=== PATIENT | male | born 1935 | race Caucasian/White ===

== ENCOUNTER → 2017-11-30 05:00 | Outpatient (REF) | payer MEDICARE, SELFPAY ==
[2017-11-30 08:56] LABS: AST(SGOT) 14 U/L (15-37); Alanine Aminotransfer ALT/SGPT 23 U/L (12-78); Albumin, Serum 3.5 g/dL (3.4-5.0); Alkaline Phosphatase 39 U/L (45-117); Anion Gap 8 (5-15); BUN 30 mg/dL (7-18); BUN/Creat Ratio 21.4 RATIO (10-20); Calcium,Total 9.3 mg/dL (8.5-10.1); Chloride 101 mmol/L (98-107); EST Glomerular Filtration Rate 52 mL/min (>60); Est Glom Filt Rate - Afr Amer 63 mL/min (>60); Globulin 3.6 g/dL (2.2-4.2); Glucose 112 mg/dL (70-110); Potassium 4.7 mmol/L (3.5-5.1); Protein, Total 7.1 g/dL (6.4-8.2); Sodium Level 136 mmol/L (136-145)
[2017-11-30 09:12] LABS: Hemoglobin A1c 7.9 % (4.2-6.3)
== END ==
LOC: OLS.ACH 05:00
DX: E11.40 Type 2 diabetes mellitus with diabetic neuropathy, unspecified (principal)
CPT/HCPCS: 36415; 80053; 83036

== ENCOUNTER → 2018-03-01 05:00 | Outpatient (REF) | payer MEDICARE, SELFPAY ==
[2018-03-01 08:44] LABS: ALB/GLOB Ratio 1.2 RATIO (0.9-2.4); AST(SGOT) 11 U/L (15-37); Alanine Aminotransfer ALT/SGPT 17 U/L (16-61); Albumin, Serum 3.5 g/dL (3.2-5.0); Alkaline Phosphatase 45 U/L (45-117); Anion Gap 8 (5-15); BUN 32 mg/dL (7-18); BUN/Creat Ratio 21.9 RATIO (10-20); Calcium,Total 8.7 mg/dL (8.5-10.1); Chloride 102 mmol/L (98-107); Cholesterol 183 mg/dL (200); Creatinine, Serum 1.46 mg/dL (0.70-1.30); EST Glomerular Filtration Rate 49 mL/min (>60); Est Glom Filt Rate - Afr Amer 60 mL/min (>60); Glucose 124 mg/dL (74-106); High Density Lipoprotein 44 mg/dL; Potassium 4.7 mmol/L (3.5-5.1); Protein, Total 6.5 g/dL (6.4-8.2); Sodium Level 138 mmol/L (136-145); Triglycerides 270 mg/dL; Very Low Density Lipoprotein 54 mg/dL (5-40)
[2018-03-01 09:04] LABS: Hemoglobin A1c 9.2 % (4.2-6.3)
== END ==
LOC: OLS.ACH 05:00
PROVIDERS: Visit Provider Family Medicine
DX: E11.40 Type 2 diabetes mellitus with diabetic neuropathy, unspecified (principal); E78.00 Pure hypercholesterolemia, unspecified
CPT/HCPCS: 36415; 80053; 80061; 83036

== ENCOUNTER → 2018-05-31 05:00 | Outpatient (REF) | payer MEDICARE, SELFPAY ==
[2018-05-31 09:27] LABS: Hemoglobin A1c 8.6 % (4.2-6.3)
[2018-05-31 09:31] LABS: AST(SGOT) 10 U/L (15-37); Alanine Aminotransfer ALT/SGPT 19 U/L (16-61); Albumin, Serum 3.2 g/dL (3.2-5.0); Alkaline Phosphatase 37 U/L (45-117); Anion Gap 10 (5-15); BUN 21 mg/dL (7-18); BUN/Creat Ratio 16.3 RATIO (10-20); Chloride 103 mmol/L (98-107); Creatinine, Serum 1.29 mg/dL (0.70-1.30); EST Glomerular Filtration Rate 57 mL/min (>60); Est Glom Filt Rate - Afr Amer 69 mL/min (>60); Globulin 3.2 g/dL (2.2-4.2); Glucose 176 mg/dL (74-106); Potassium 4.3 mmol/L (3.5-5.1); Protein, Total 6.4 g/dL (6.4-8.2); Sodium Level 140 mmol/L (136-145)
== END ==
LOC: OLS.ACH 05:00
PROVIDERS: Visit Provider Family Medicine
DX: E11.40 Type 2 diabetes mellitus with diabetic neuropathy, unspecified (principal)
CPT/HCPCS: 36415; 80053; 83036

== ENCOUNTER → 2018-06-29 17:25 | Outpatient (REF) | payer MEDICARE, SELFPAY ==
[2018-06-29 18:05] LABS: Absolute Lymphocyte Count 2.31 X10^3/ul (0.83-4.51); Absolute Neutrophil Count 5.9 X10^3/uL (2.0-7.7); Basophil# 0.02 X10^3/uL; Basophil% 0.2 % (0-1); Eosinophil# 0.33 X10^3/uL; Eosinophils% 3.7 % (0-5); Hematocrit 37.7 % (40-54); Lymphocyte # 2.31 X10^3/ul (4.0); Lymphocyte % 25.8 % (19-41); Mean Corp Hgb Conc 31.8 g/gl (32-36); Mean Corpuscular Hgb 29.8 pg (27.0-32.0); Mean Corpuscular Volume 93.5 fL (80-94); Mean Platelet Vol. 9.9 fl (6.2-12.0); Monocyte# 0.41 X10^3/uL; Monocyte% 4.6 % (0-10); Neutrophil # 5.88 X10^3/uL (2.7-7.7); Neutrophil % 65.5 % (47-70); Platelet Count 261 K/mm3 (150-450); RBC Distribution Width SD 48.2 fl (35.1-43.9); Red Blood Count 4.03 M/mm3 (4.6-6.2)
[2018-06-29 18:07] LABS: POSITIVE COUNT NO; POSITIVE DIFFERENTIAL NO; POSITIVE MORPHOLOGY NO
[2018-06-29 18:14] LABS: Anion Gap 6 (5-15); BUN 36 mg/dL (7-18); BUN/Creat Ratio 19.6 RATIO (10-20); Calcium,Total 9.2 mg/dL (8.5-10.1); Chloride 102 mmol/L (98-107); Creatinine, Serum 1.84 mg/dL (0.70-1.30); EST Glomerular Filtration Rate 38 mL/min (>60); Est Glom Filt Rate - Afr Amer 46 mL/min (>60); Glucose 335 mg/dL (74-106); Potassium 4.5 mmol/L (3.5-5.1); Sodium Level 136 mmol/L (136-145)
== END ==
LOC: OLS.ACH 17:25
PROVIDERS: Visit Provider Family Medicine
DX: R69 Illness, unspecified (principal)
CPT/HCPCS: 36415; 80048; 85025

== ENCOUNTER → 2018-07-02 05:00 | Outpatient (REF) | payer MEDICARE, SELFPAY ==
[2018-07-02 09:26] LABS: Anion Gap 10 (5-15); BUN 28 mg/dL (7-18); Calcium,Total 8.5 mg/dL (8.5-10.1); Chloride 107 mmol/L (98-107); EST Glomerular Filtration Rate 52 mL/min (>60); Est Glom Filt Rate - Afr Amer 62 mL/min (>60); Glucose 89 mg/dL (74-106); Sodium Level 142 mmol/L (136-145)
== END ==
LOC: OLS.ACH 05:00
PROVIDERS: Visit Provider Family Medicine
DX: E11.40 Type 2 diabetes mellitus with diabetic neuropathy, unspecified (principal)
CPT/HCPCS: 36415; 80048

== ENCOUNTER 2018-07-06 10:01 | Inpatient (IN) | payer MEDICARE, SELFPAY ==
[2018-07-06] VITALS (17 sets, daily range): BP systolic 103–134; BP diastolic 45–81; PULSE 85–109; RESP 12–30; TEMP 36.2–37.2; O2SAT 95–100; BMI 31.4; BMI 28.8; BMI 28.9
--- NOTE | 2018-07-06 10:04 | NURSING ---
NO OLD EKGS
[2018-07-06 10:29] LABS: Absolute Neutrophil Count 5.2 X10^3/uL (2.0-7.7); Basophil# 0.02 X10^3/uL; Basophil% 0.3 % (0-1); Eosinophil# 0.07 X10^3/uL; Hemoglobin 11.5 g/dl (13.0-16.5); Lymphocyte % 18.3 % (19-41); Mean Corp Hgb Conc 31.9 g/gl (32-36); Mean Corpuscular Hgb 29.3 pg (27.0-32.0); Mean Corpuscular Volume 91.6 fL (80-94); Mean Platelet Vol. 9.5 fl (6.2-12.0); Monocyte# 0.46 X10^3/uL; Monocyte% 6.5 % (0-10); Neutrophil # 5.23 X10^3/uL (2.7-7.7); Neutrophil % 73.6 % (47-70); POSITIVE COUNT NO; POSITIVE DIFFERENTIAL NO; POSITIVE MORPHOLOGY NO; Platelet Count 309 K/mm3 (150-450); RBC Distribution Width CV 13.9 % (11.6-14.6); RBC Distribution Width SD 46.4 fl (35.1-43.9); Red Blood Count 3.93 M/mm3 (4.6-6.2); White Blood Count 7.1 K/mm3 (4.4-11.0)
[2018-07-06] MEDS: Aspirin 81 MG TAB.CHEW 162 MG PO (10:30)
[2018-07-06] MEDS: 0.9% Normal Saline 1,000 ML 15 ML IV ×2 (10:30→11:55)
[2018-07-06 10:47] LABS: Lactic Acid 1.4 mmol/L (0.4-2.0)
[2018-07-06 10:55] LABS: Anion Gap 8 (5-15); BUN 29 mg/dL (7-18); BUN/Creat Ratio 16.9 RATIO (10-20); Calcium,Total 8.8 mg/dL (8.5-10.1); Chloride 102 mmol/L (98-107); Creatinine, Serum 1.72 mg/dL (0.70-1.30); EST Glomerular Filtration Rate 41 mL/min (>60); Est Glom Filt Rate - Afr Amer 49 mL/min (>60); Estimated Creatinine Clearance 32.59 ml/min; Glucose 194 mg/dL (74-106); Potassium 4.6 mmol/L (3.5-5.1); Sodium Level 134 mmol/L (136-145)
[2018-07-06 11:01] LABS: BNP,B-Type NATRIURETIC PEPTIDE 437.7 pg/mL (0-100)
[2018-07-06] MEDS: Heparin Injection (Vial) 5,000 UNIT/ML VIAL 7500 UNIT IV (11:48)
--- NOTE | 2018-07-06 11:50 | CM.ED ---
Attempted to perform Case Management initial assessment. Care provided by team at this time. Will reattempt as able.
[2018-07-06] MEDS: HEPARIN/D5w 25,000 UNITS 25,000 UNITS/250 ML IV.SOLN. 14 UNITS IV (11:54)
[2018-07-06] MEDS: Piperacil/Tazobactam 4.5 GM in NS100 MBP IV (11:55)
--- NOTE | 2018-07-06 12:28 | ED.VISSUMM ---
- ER Visit Summary Date of Service: 07/06/18 Chief Complaint: [Shortness of breath] History of Present Illness: The patient is a 82 M presents the emergency department complaint of shortness of breath started several days ago. Patient is a poor informant as he does have a history of some dementia. Patient is from a assisted living facility. Patient currently had an episode of increasing shortness of breath this morning. eventually arrived in the emergency department states that he is currently being treated for pneumonia. Patient denies any chest pain. Patient does have a history of diabetes, hypertension, BPH, UTIs, and dementia.] Physical Examination: [HEENT-PERRLA, EOMI. Cranial nerves II through XII grossly intact. TMs clear. Mucous membranes moist. No adenopathy. Cardiovascular-regular rate and rhythm without murmur or ectopy Lungs-aeration bilaterally. Occasional rhonchi with some faint wheezing. Mild tachypnea. No accessory muscle use or retractions. Abdomen-normoactive bowel sounds, soft, nontender, no rebound or rigidity, no peritoneal signs. Extremities-intact ?4, normal range of motion, normal pulses, atraumatic] Test Results: [EKG obtained arrival shows sinus rhythm with a ventricular rate of 110 bpm with a right bundle branch block and some subtle ST elevation inferiorly anteriorly and laterally. No old EKGs available for comparison. CBC with differential showing a 7.1, hemoglobin 11, hematocrit 36, platelets 309. Chemistries unremarkable. BUN was 29 creatinine 1.72. Troponin was 1.77. BNP was elevated 437. Lactate was 1.4. Chest x-ray showed patchy infiltrates right upper lobe, right lower lobe, and left lower lobe. Because of the elevated troponin and the abnormal findings on x-ray CTA of the chest was obtained to rule out PE which was positive for bilateral pulmonary emboli.] Emergency Department Course and Treatment: [Patient was started on heparin and started on antibiotics Zosyn, Levaquin, and vancomycin. Case was discussed with Dr. Beltran who is on for cardiology and he did review the patient's initial EKG and did not feel this was consistent with a STEMI.] Treatment Plan: [Admit for medical management.] Disposition: [Admit] Impression: [Pulmonary emboli Non-ST elevation [facility] acquired pneumonia] This note was generated with [employer] software. It may contain incorrect words, spelling, and punctuation that were not noted in review of the chart prior to signing ED Disposition - Plan for ED Patient: Chief Complaint: Shortness of Breath Referrals: Helder Contreras [Primary Care Provider] -
--- NOTE | 2018-07-06 12:32 | PCM.HP.STD ---
Problem List (1) Shortness of breath Status: Acute History of Present Illness Date of Admission: 07/06/18 Chief Complaint: shortness of breath The patient is a 82 year old M was admitted via the ED from his [facility] with a complaint of shortness of breath. Patient had a very good historian and history was taken from his . According to his , she was called today that patient had an episode of sudden shortness of breath and so he was going to be admitted to the ED. could not give any more history but states that patient was recently being treated for pneumonia over the last few days. She was unable to say whether he had any fever, chills, risk of aspiration, but does say he had a slight cough which is nonproductive. I was unable to get any more history from the . In the ED, temperature was 99.0 Fahrenheit, blood pressure was 103/66 and pulse rate was 101. Respiratory rate was 28. He was saturating at 96% on 3 L of oxygen. Labs were significant for sodium of 134, creatinine of 1.72 and troponin of 1.77. BNP was 47.7. CBC was unremarkable. Lactic acid was 1.4. EKG done showed tachycardia with rate of 1 1 10 bpm and a right bundle branch block. Chest x-ray showed patchy infiltrates in the right upper, and lower lobe and left lower lobe. CT PE done was positive for bilateral pulmonary emboli. Patient is being admitted to be managed for PE, and ST ELIN and health associated pneumonia. He was started on IV vancomycin and Zosyn and Levaquin. [] Past Medical History Allergies metformin Adverse Reaction (Verified 07/06/18 10:23) Other Home Medications: Ambulatory Orders Medication Instructions Recorded Acetaminophen 650 mg PO Q4H PRN PRN 07/06/18 Aspirin [Aspirin, Baby] 81 mg PO DAILY@0800 07/06/18 Ciprofloxacin HCl 1 drop OP BID 07/06/18 Cod Liver Oil 1 each PO DAILY 07/06/18 Cranberry 800 mg PO BID 07/06/18 Cyclosporine [Restasis] 1 drop OP Q12H PRN 07/06/18 Fenofibrate,Micronized 200 mg PO DAILY 07/06/18 [Fenofibrate] Finasteride [Proscar] 5 mg PO DAILY 07/06/18 Glimepiride [Amaryl] 1 tab PO BID 07/06/18 Insulin Detemir [Levemir] 42 unit SQ QHS 07/06/18 Insulin Detemir [Levemir] 80 units SQ DAILY 07/06/18 Ipratropium/Albuterol Sulfate 3 ml INHALATION Q4H PRN PRN 07/06/18 [Duoneb] Lisinopril [Zestril] 5 mg PO DAILY 07/06/18 Magnesium Hydroxide [Milk Of 30 ml PO DAILY PRN PRN 07/06/18 Magnesia] Na Phos,M-B/Na Phos,Di-Ba [Fleet 1 bottle RECTAL DAILY PRN 07/06/18 Enema] Polyvinyl Alcohol [Artificial 15 ml OP BID PRN 07/06/18 Tears] Sennosides [Senna] 8.6 mg PO DAILY PRN 07/06/18 Sertraline HCl [Zoloft] 25 mg PO QHS 07/06/18 Sulfamethoxazole/Trimethoprim 1 each PO DAILY 07/06/18 [Bactrim 400-80 mg Tablet] Tamsulosin HCl [Flomax] 0.4 mg PO DAILY 07/06/18 Lives: [facility] Smoking Status: Unknown if ever smoked Alcohol: None Drugs: None Review of Systems Respiratory: Reports: Cough - nonproductive, Shortness of Breath Unable to obtain accurate/complete ROS d/t: Unable to do ROS as patient is poor historian with some dementia VTE Information - Inpt Only VTE Present on Admission: Yes - bilateral PE Patient Problems: Active and Suspected Problems Shortness of breath (Acute) Pulmonary embolism (Acute) NSTEMI (non-ST elevated myocardial infarction) (Acute) Pulmonary hypertension (Acute) - Physical Exam General: Alert, Cooperative, No apparent distress, - - patient is a bit confused; able to follow instructions AO x 2 HEENT: Atraumatic, PERRLA, EOMI, Normocephalic Oral: Dry Mucosa Neck: Supple, No JVD, Negative Carotid Bruits Lungs: - - decreased breath sounds bibasally; no crackles or wheezing auscultated Cardiovascular: Normal S1, Normal S2, No murmurs, Tachycardic Abdomen: Bowel Sounds Present, Soft, Non Tender, Non-Distended, No Hepato-splenomegaly Extremities: No clubbing, No cyanosis, No edema, Capillary Refill Less than 3 Seconds Skin: No rashes, No breakdown, - - multiple seborrheic keratoses; history of skin cancer Musculoskeletal: No Tenderness to Palpation of Joints or Extremities Lymphatic: No Cervical, Supraclavicular, or Inguinal Adenopathy Neurological: Cranial nerves II-XII grossly intact, Motor Exam 5/5 strength throughout Psych/Mental Status: Flat Affect Vital Signs Temp Pulse Resp BP Pulse Ox 99.0 F 109 H 28 H 109/53 L 96 07/06/18 10:03 07/06/18 12:01 07/06/18 12:01 07/06/18 12:01 07/06/18 12:01 Oxygen Flow Rate (L/min) 2.5 Oxygen Delivery Method Nasal Cannula Weight: 206 lb 9.17 oz Body Mass Index (BMI) 31.4 Laboratory Tests Past 24 Hrs 07/06/18 07/06/18 07/06/18 10:03 10:03 10:03 WBC 7.1 RBC 3.93 L Hgb 11.5 L Hct 36.0 L MCV 91.6 MCH 29.3 MCHC 31.9 L RDW 13.9 RDW Differential 46.4 H Plt Count 309 MPV 9.5 Immature Gran % (Auto) 0.300 Neut % (Auto) 73.6 H Lymph % (Auto) 18.3 L [place] % (Auto) 6.5 Eos % (Auto) 1.0 Baso % (Auto) 0.3 Absolute Neuts (auto) 5.2 Absolute Lymphs (auto) 1.30 Total Counted Not Reportable APTT Sodium 134 L Potassium 4.6 Chloride 102 Carbon Dioxide 24.0 Anion Gap 8 BUN 29 H Creatinine 1.72 H Estim Creat Clear Calc 32.59 Est GFR (MDRD) Af Amer 49 L Est GFR (MDRD) Non-Af 41 L BUN/Creatinine Ratio 16.9 Glucose 194 H Lactic Acid 1.4 Calcium 8.8 Troponin I 1.770 H* B-Natriuretic Peptide 07/06/18 07/06/18 10:03 10:05 WBC RBC Hgb Hct MCV MCH MCHC RDW RDW Differential Plt Count MPV Immature Gran % (Auto) Neut % (Auto) Lymph % (Auto) [place] % (Auto) Eos % (Auto) Baso % (Auto) Absolute Neuts (auto) Absolute Lymphs (auto) Total Counted APTT Pending Sodium Potassium Chloride Carbon Dioxide Anion Gap BUN Creatinine Estim Creat Clear Calc Est GFR (MDRD) Af Amer Est GFR (MDRD) Non-Af BUN/Creatinine Ratio Glucose Lactic Acid Calcium Troponin I B-Natriuretic Peptide 437.7 H Diagnostic Data Chest X-Ray 07/06/18 10:11 IMPRESSION: Patchy infiltrates in the right upper and right lower lobes as well as in the left lower lobe. Follow-up is recommended. Electronically Signed: Ramana Frost MD at 11:05 EDT Tel [phone], Service support , Chest CTA 07/06/18 11:03 IMPRESSION: Pulmonary embolism involving the right interlobar pulmonary artery and the branches as well as tiny pulmonary emboli in the left lower lobe pulmonary arterial branches. Bibasilar infiltration and small bilateral pleural effusions. Electronically Signed: Ramana Frost MD at 12:23 EDT Tel [phone], Service support , Assessment/Plan All Active Problems Shortness of breath (Acute) Pulmonary embolism (Acute) NSTEMI (non-ST elevated myocardial infarction) (Acute) Pulmonary hypertension (Acute) 82-year-old male admitted from the fdc with complaint of shortness of breath of sudden onset. 1. submassive bilateral pulmonary embolism unclear whether it is provoked or unprovoked. started having acute onset SOB overnight; unable to give any more information about that. CTPE positive for bilateral PE; has associated troponin elevation which could be due to NSTEMI or due to right heart strain started on heparin drip no information about age appropriate screening, but only has history of skin cancer. No weight loss per . No records of previous colonoscopy will consult pulmonology continue heparin drip; cycle troponin 2D echo oxygen to maintain saturation >92% 2. NST ELIN Has elevated troponin of 1.17. No baseline available. EKG showed no acute ST changes. And only showed right bundle branch block. Elevated troponin may be due to right heart strain from PE or NSTEMI will cycle troponin. Continue heparin drip will give aspirin 81mg daily and atorvastatin 40mg; cardiology consult 2D echo 3.Sepsis due to Health associated pneumonia Was being pneumonia in the fdc. cannot give any more history about this. Does not know which antibiotic he was on. Chest x-ray showed patchy infiltrates in right upper lobe, right lower lobe and left lower lobe. CT angiogram also showed small bilateral pleural effusions with bibasilar infiltration or atelectasis. has no leucocytosis,. SIRS criteria is 2/4, with a possible focus of infection started on IV vancomycin, zosyn and levaquin; will continue 4. Diabetes mellitus: continue home insulin, and start ISS. hold metformin and glyburide. 5. BPH: on flomax and finasteride. DVT prophylaxis: On heparin drip Code status: DNRCCA. Patient and counseled about different types of CODE STATUS. Counseled about different to DNR CCA, DNR CC and full code. Per , who states she is his power of attorney at law, patient is DNR CC -A. DOcumentation of DNRCCA code status brought from SNF. Total [id number] time 18 minutes. This note was generated with [employer] dictation software. It may contain incorrect words, spelling, and punctuation that were not noted in checking the note before signing. Code Visit Inpatient E&M: 89123 Init Hosp L3 Procedures: 09117 Advncd Care Plan 30 Min
[2018-07-06 12:39] LABS: Partial Thromboplast Time 34.2 Seconds (24.1-36.2)
--- NOTE | 2018-07-06 12:53 | NURSING ---
107 PE, PNEUMONIA KORAM
--- NOTE | 2018-07-06 14:20 | CASEMGMT ---
Patient is from [facility]. 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 AUTUMN spoke with Shelby at [facility] and he will not need a pre-cert to return. AUTUMN faxed updates to [facility]. Plan: d/c back to [facility] when ready Clare ROSAS MSW
[2018-07-06] MEDS: levoFLOXacin IV 750 MG/150 ML BAG 100 MG IV (14:48)
[2018-07-06] MEDS: 0.9% Normal Saline 1,000 ML 125 ML IV (14:52)
--- NOTE | 2018-07-06 15:04 | CON.PCM_ITS ---
Problem List (1) Pulmonary embolism Status: Acute Qualifiers: Pulmonary embolism type: other Chronicity: acute Acute cor pulmonale presence: with acute cor pulmonale Qualified Code(s): I26.09 - Other pulmonary embolism with acute cor pulmonale Reason for Consult Date of Consultation: 07/06/18 Reason for Consultation: Pulmonary embolism History of Present Illness: The patient is a 82 year old M, with reported history of diabetes, hypertension , BPH, recurrent UTIs and dementia, who presented to [facility] on 07/06/2018 following acute decompensation of shortness of breath overnight. Patient is a very poor historian and reportedly lives at a nursing facility. Patient has been dealing with pneumonia for approximately 1 week, but overnight started to have worsening of shortness of breath. Patient was evaluated by the medical secretary receptionist and was sent to the ER for evaluation. On evaluation in the emergency room, patient was noted to have tachycardia with 110 bpm with a right bundle yaw block. CBC was grossly unremarkable, but troponin was elevated at 1.77. BNP was elevated at 437. Chest x-ray showed patchy right-sided infiltrates. This led to a CTA of the chest to rule out PE and was notable for right-sided pulmonary emboli. Patient was placed on a heparin drip and then admitted to the general medical floor. Patient denies any previous history of respiratory difficulties. Patient does have a [id number] smoking history, but denies any alcohol or illicit drug use. Patient states that he currently lives in a jail and is relatively nonmobile. Patient has had issues with recurrent UTIs in the past and states that he was recently being treated for pneumonia. However, patient is unaware of how he was being treated. Patient denies any requirement for inhalers or supplemental oxygen in the past. Patient has never had pulmonary function test. 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 Patient denies any recent trauma or travel. Review of systems otherwise negative ?10 systems. Past Medical History Allergies metformin Adverse Reaction (Verified 07/06/18 10:23) Other Lives: Long-Term Smoking Status: Unknown if ever smoked Alcohol: None Drugs: None Review of Systems Comment: See HPI Patient Problems: Active and Suspected Problems Shortness of breath (Acute) Pulmonary embolism (Acute) Objective: All imaging was personally reviewed. Lung parenchymal evaluation was limited by motion artifact. Pulmonary embolism was noted. Patient did have bilateral pleural effusions, right greater than left. - Physical Exam General: Alert, Oriented x3, Cooperative, No apparent distress, - - Appears stated age. Speaking in full sentences. Nasal cannula in place. HEENT: Atraumatic, PERRLA, EOMI, Normocephalic, - - No scleral icterus or injection noted. Oral: Moist Mucosa, No Gingival or Mucosal Lesions/ Ulcerations Neck: Supple, No JVD, No Nodes, Trachea Midline Lungs: No rhonchi, No wheeze, No rales, Diminished, - - Symmetric expansion. No dullness to percussion. Cardiovascular: Regular rate, Normal S1, Normal S2, No murmurs, No rub noted, No Gallop Abdomen: Bowel Sounds Present, Soft, Non Tender, Non-Distended Extremities: No clubbing, No cyanosis, No edema Skin: No rashes, No breakdown Musculoskeletal: No Tenderness to Palpation of Joints or Extremities, No Muscle Wasting Lymphatic: No Cervical, Supraclavicular, or Inguinal Adenopathy Neurological: Cranial nerves II-XII grossly intact, - - Decreased strength bilateral lower extremities Psych/Mental Status: Alert and oriented to time, place, person, mood and affect Vital Signs Temp Pulse Resp BP Pulse Ox 37.0 C 98 20 H 108/45 L 98 07/06/18 13:22 07/06/18 13:22 07/06/18 13:22 07/06/18 13:22 07/06/18 13:22 Oxygen Flow Rate (L/min) 2 Oxygen Delivery Method Nasal Cannula Weight: 99.3 kg Body Mass Index (BMI) 28.8 Laboratory Tests 07/06/18 07/06/18 07/06/18 10:03 10:03 10:03 WBC 7.1 RBC 3.93 L Hgb 11.5 L Hct 36.0 L MCV 91.6 MCH 29.3 MCHC 31.9 L RDW 13.9 RDW Differential 46.4 H Plt Count 309 MPV 9.5 Immature Gran % (Auto) 0.300 Neut % (Auto) 73.6 H Lymph % (Auto) 18.3 L [place] % (Auto) 6.5 Eos % (Auto) 1.0 Baso % (Auto) 0.3 Absolute Neuts (auto) 5.2 Absolute Lymphs (auto) 1.30 Total Counted Not Reportable APTT Sodium 134 L Potassium 4.6 Chloride 102 Carbon Dioxide 24.0 Anion Gap 8 BUN 29 H Creatinine 1.72 H Estim Creat Clear Calc 32.59 Est GFR (MDRD) Af Amer 49 L Est GFR (MDRD) Non-Af 41 L BUN/Creatinine Ratio 16.9 Glucose 194 H Lactic Acid 1.4 Calcium 8.8 Troponin I 1.770 H* B-Natriuretic Peptide 07/06/18 07/06/18 07/06/18 10:03 10:05 14:15 WBC RBC Hgb Hct MCV MCH MCHC RDW RDW Differential Plt Count MPV Immature Gran % (Auto) Neut % (Auto) Lymph % (Auto) [place] % (Auto) Eos % (Auto) Baso % (Auto) Absolute Neuts (auto) Absolute Lymphs (auto) Total Counted APTT 34.2 Sodium Potassium Chloride Carbon Dioxide Anion Gap BUN Creatinine Estim Creat Clear Calc Est GFR (MDRD) Af Amer Est GFR (MDRD) Non-Af BUN/Creatinine Ratio Glucose Lactic Acid Calcium Troponin I 1.820 H* B-Natriuretic Peptide 437.7 H Clinical Impression(s) from Imaging Studies Chest X-Ray 07/06/18 10:11 IMPRESSION: Patchy infiltrates in the right upper and right lower lobes as well as in the left lower lobe. Follow-up is recommended. Electronically Signed: Ramana Frost MD at 11:05 EDT Tel [phone], Service support , Chest CTA 07/06/18 11:03 IMPRESSION: Pulmonary embolism involving the right interlobar pulmonary artery and the branches as well as tiny pulmonary emboli in the left lower lobe pulmonary arterial branches. Bibasilar infiltration and small bilateral pleural effusions. Electronically Signed: Ramana Frost MD at 12:23 EDT Tel [phone], Service support , Assessment/Plan All Active Problems Shortness of breath (Acute) Pulmonary embolism (Acute) RECOMMENDATIONS: 1. Continue with anticoagulation 2. Wean oxygen as tolerated 3. Await echocardiogram 4. Increase activity as tolerated 5. Continue to cycle troponins 6. Await cardiology recommendations IMPRESSIONS: 1. Acute hypoxic respiratory insufficiency secondary to submassive pulmonary embolism with cor pulmonale Echocardiogram is currently pending, but increased troponins are suggestive of strain. Clinical significance has yet to be determined. Patient is on anticoagulation and appears to be tolerating well. Continue to cycle troponins. Patient may require age-appropriate malignancy workup given non- provoked pulmonary embolism. Patient appears to be tolerating current hypoxia well, so lower extremity Dopplers are likely not indicated as they will not change clinical course. Outpatient pulmonary function testing can be completed to evaluate for possible COPD given extensive smoking history. 2. Non-ST elevation DE Unclear cardiac history. Patient is a very poor historian. Elevated troponin may be secondary to right heart strain from pulmonary embolism. EKG had showed right bundle branch block, so ST elevation will be of limited utility. Patient is on statin and aspirin therapy. Patient on full anticoagulation. Cardiology is currently consulted. Await recommendations. 3. Diabetes mellitus/hypertension/BPH/dementia/recurrent UTI/advanced age Complicates care, management, recovery and prognosis. Likely okay to continue with baseline medications. Patient is not endorsing any dysuria, fever or leukocytosis to suggest current UTI. Code Visit Inpatient E&M: 77654 Init Hosp L2
--- NOTE | 2018-07-06 16:30 | PCM.CONS.C ---
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 Approximately 1 week ago the patient developed fevers, chills, and was diagnosed with pneumonia and treated with antibiotics. Earlier today the patient had acute shortness of breath, diaphoresis, and tachypnea was brought to [facility] ER. In the emergency room an EKG was performed which demonstrated sinus tachycardia with intraventricular conduction delay, left anterior hemiblock, possible old inferior posterior wall myocardial infarction and subtle J-point elevation in inferior leads. I reviewed the EKG and did not believe that it was a STEMI. Patient underwent a CTA was found to have bilateral pulmonary emboli, right greater than left, treated with IV heparin. His initial troponin was 1.77. Patient was treated with O2 therapy and is now resting comfortably in PCU. Prior to this the patient denied any chest pain, angina, or shortness of breath. He has never been told he had any coronary disease, catheterization or stents. His activity mostly includes laying in bed most of the day occasionally gets up and walks to a wheelchair and rolls around the [facility]. Echocardiogram done today demonstrated mild inferior hypokinesis, mild mitral regurgitation, immobile right coronary cusp of the aortic valve, and RVSP estimated to be around 66 mmHg consistent with severe pulmonary hypertension. [] Past Medical History Allergies/Adverse Reactions: Allergies metformin Adverse Reaction (Verified 07/06/18 10:23) Other Home Medications: Ambulatory Orders Medication Instructions Recorded Acetaminophen 650 mg PO Q4H PRN PRN 07/06/18 Aspirin [Aspirin, Baby] 81 mg PO DAILY@0800 07/06/18 Ciprofloxacin HCl 1 drop OP BID 07/06/18 Cod Liver Oil 1 each PO DAILY 07/06/18 Cranberry 800 mg PO BID 07/06/18 Cyclosporine [Restasis] 1 drop OP Q12H PRN 07/06/18 Fenofibrate,Micronized 200 mg PO DAILY 07/06/18 [Fenofibrate] Finasteride [Proscar] 5 mg PO DAILY 07/06/18 Glimepiride [Amaryl] 1 tab PO BID 07/06/18 Insulin Detemir [Levemir] 42 unit SQ QHS 07/06/18 Insulin Detemir [Levemir] 80 units SQ DAILY 07/06/18 Ipratropium/Albuterol Sulfate 3 ml INHALATION Q4H PRN PRN 07/06/18 [Duoneb] Lisinopril [Zestril] 5 mg PO DAILY 07/06/18 Magnesium Hydroxide [Milk Of 30 ml PO DAILY PRN PRN 07/06/18 Magnesia] Na Phos,M-B/Na Phos,Di-Ba [Fleet 1 bottle RECTAL DAILY PRN 07/06/18 Enema] Polyvinyl Alcohol [Artificial 15 ml OP BID PRN 07/06/18 Tears] Sennosides [Senna] 8.6 mg PO DAILY PRN 07/06/18 Sertraline HCl [Zoloft] 25 mg PO QHS 07/06/18 Sulfamethoxazole/Trimethoprim 1 each PO DAILY 07/06/18 [Bactrim 400-80 mg Tablet] Tamsulosin HCl [Flomax] 0.4 mg PO DAILY 07/06/18 Lives: Custodial Smoking Status: Unknown if ever smoked Alcohol: None Drugs: None Review of Systems - Review of Systems General: Denies: Fever, Night Sweats, Fatigue Cardiovascular: Reports: Shortness of Breath at Rest. Denies: Chest Discomfort, Shortness of Breath, Orthopnea, PND, Peripheral Edema, Palpitations, Lightheadedness, Dizziness, Near Syncope, Syncope Respiratory: Denies: Cough, Sputum Production, Hemoptysis Gastrointestinal: Denies: Hematemesis, Hematochezia, Melena Genitourinary: Denies: Dysuria, Hematuria Skin: Denies: Rash Subjectve: Patient resting comfortably, mild conversational dyspnea, no acute distress. Objective: Vital Signs Temp Pulse Resp BP Pulse Ox 98.6 F 97 20 H 108/45 L 98 07/06/18 13:22 07/06/18 14:18 07/06/18 13:22 07/06/18 13:22 07/06/18 13:22 Oxygen Flow Rate (L/min) 2 Oxygen Delivery Method Nasal Cannula Weight: 218 lb 14.704 oz Body Mass Index (BMI) 28.8 General: Awake, Alert, Oriented x 3 HEENT: PERRL, EOMI, Sclera Non Icteric Neck: Supple, Good ROM, No Lymph Node Enlargement Lungs: Rales - Reinaldo Bases Cardiovascular: Regular Rhythm, Normal S1, Normal S2, No Rubs, No Gallops Murmur Murmur: Grade 2/6, Holosystolic Vascular: No Carotid Bruits, Normal Femoral Pulses, Normal Radial Pulses, Normal Dorsalis Pedal Pulse, Normal Posterior Tibial Pulses Abdomen: Bowel Sounds Present, Soft, Non Tender, No HSM, No Organomegaly Extremities: No Cyanosis, No Clubbing, No edema Neurological: No Focal Motor or Sensory Deficit 07/06/18 14:15: Troponin I 1.820 H* Rhythm: EKG: As above ECHO: As above Stress Test: Cardiac Cath: PCI: CT Surgery: Holter monitor: EPS: PPM: CXR: Chest CT Scan: Assessment/Plan 1. Non-STEMI: The patient has initially elevated troponin of 1.77, increasing to 1.88, superimposed upon acute shortness of breath, bilateral pulmonary emboli, right greater than left, and evidence of inferior posterior wall myocardial infarction on EKG and subtle inferior posterior hypokinesis on echocardiogram. In addition he has evidence of severe pulmonary hypertension with an RVSP of approximately 66 mmHg. I do not believe the patient requires urgent catheterization at this time. We will treat the patient with baby aspirin, IV heparin to keep his PTT between 50 and 70 seconds, and at some point once he recovers from this may require a stress test to assess for possible coronary ischemia. Patient is DNR/CCA, so would have a high threshold for diagnostic coronary angiogram going forward. Would not recommend beta-clara therapy at this time given his pulmonary emboli and O2 requirements. Would recommend continuing lifelong anticoagulation given his sedentary lifestyle and tendency for DVT and pulmonary emboli. This can be accomplished with either Coumadin, Xarelto, or Eliquis depending upon his creatinine clearance. 2. Fasting lipid profile: Recommend obtaining a fasting profile to further risk stratify the patient. 3. Thank you very much for the opportunity to participate in the cardiac care of your patient. Consultation time took place between 4 PM and 4:30 PM. Code Visit Inpatient E&M: 30261 Init Hosp L2
[2018-07-06 17:01] LABS: Bacteria 0 SEEN /hpf (None Seen); Mucous, Urine 0 SEEN /hpf (<or=2+); Red Blood Cells-Urine 0 SEEN /hpf (0-5)
[2018-07-06 17:41] LABS: Color, Urine Yellow (Yellow); Glucose, Dipstick Normal (Normal); Ketone-Dipstick Negative (Negative); Leukocyte Esterase-Dipstick 100 /ul (Negative); Nitrite-Dipstick Negative (Negative); Occult Blood-Urine Negative /ul (Negative); Protein-Dipstick Negative (Negative); Specific Gravity, Urine 1.015 (1.002-1.030); Urine Bilirubin Dipstick Negative (Negative); Urine Clarity Sl. Cloudy (Clear); Urine Urobilinogen Normal (Normal)
[2018-07-06 18:01] LABS: Squamous Epithelial Cells - UA 0-5 SEEN /hpf (0-5); White Blood Cells 5-10 SEEN /hpf (0-5)
[2018-07-06 18:13] LABS: Cholesterol 106 mg/dL (200); High Density Lipoprotein 35 mg/dL; Triglycerides 127 mg/dL; Very Low Density Lipoprotein 25 mg/dL (5-40)
[2018-07-06 19:14] LABS: Partial Thromboplast Time 85.8 Seconds (24.1-36.2)
--- NOTE | 2018-07-06 19:43 | NURSING ---
Called [facility] at this time a requested a PRN breathing tx for the patient.
[2018-07-06] MEDS: Ipratropium/Albuterol Sulfate 3 ML AMPUL.NEB INHALATION (19:50)
[2018-07-06] MEDS: Piperacil/Tazobactam 3.375 GM/50 ML ML IV (20:08)
[2018-07-06 21:11] LABS: Allen Test POS; Base Excess -2 mmol/L (-2 to +2); Bicarbonate 22.7 mmol/L (22-26); Blood Gas Specimen Type ART; EPAP 6; FI02 35; IPAP 12; PO2 107 mmHG (75-100); RR 12; SITE L Radial; SO2 98 % (95-99); Time Given 2100; Total Carbon Dioxide 24 mmol/L; pCO2 38.3 mmHg (35-45); pH 7.38 (7.35-7.45)
[2018-07-06 22:20] LABS: Bedside Glucose 104 mg/dL (70-110)
[2018-07-07] VITALS (15 sets, daily range): BP systolic 101–111; BP diastolic 46–59; PULSE 86–98; RESP 12–26; TEMP 36.6–37.2; O2SAT 96–99
--- NOTE | 2018-07-07 02:20 | CPS ---
decreased FiO2 to 30%
[2018-07-07 02:23] LABS: Absolute Lymphocyte Count 1.86 X10^3/ul (0.83-4.51); Absolute Neutrophil Count 4.1 X10^3/uL (2.0-7.7); Basophil# 0.01 X10^3/uL; Basophil% 0.2 % (0-1); Eosinophil# 0.19 X10^3/uL; Eosinophils% 2.9 % (0-5); Hematocrit 32.4 % (40-54); Hemoglobin 10.3 g/dl (13.0-16.5); Lymphocyte # 1.86 X10^3/ul (4.0); Lymphocyte % 28.7 % (19-41); Mean Corp Hgb Conc 31.8 g/gl (32-36); Mean Corpuscular Hgb 29.3 pg (27.0-32.0); Mean Corpuscular Volume 92.3 fL (80-94); Mean Platelet Vol. 9.2 fl (6.2-12.0); Monocyte% 4.6 % (0-10); Neutrophil # 4.09 X10^3/uL (2.7-7.7); Neutrophil % 63.3 % (47-70); Platelet Count 263 K/mm3 (150-450); RBC Distribution Width SD 47.3 fl (35.1-43.9); Red Blood Count 3.51 M/mm3 (4.6-6.2); White Blood Count 6.5 K/mm3 (4.4-11.0)
[2018-07-07 02:24] LABS: POSITIVE COUNT NO; POSITIVE DIFFERENTIAL NO; POSITIVE MORPHOLOGY NO
[2018-07-07 02:31] LABS: Partial Thromboplast Time 76.1 Seconds (24.1-36.2)
[2018-07-07 02:33] LABS: Anion Gap 8 (5-15); BUN 25 mg/dL (7-18); BUN/Creat Ratio 16.9 RATIO (10-20); Calcium,Total 8.5 mg/dL (8.5-10.1); Chloride 106 mmol/L (98-107); Creatinine, Serum 1.48 mg/dL (0.70-1.30); EST Glomerular Filtration Rate 48 mL/min (>60); Est Glom Filt Rate - Afr Amer 59 mL/min (>60); Estimated Creatinine Clearance 44.24 ml/min; Glucose 92 mg/dL (74-106); Potassium 4.4 mmol/L (3.5-5.1); Sodium Level 139 mmol/L (136-145)
--- NOTE | 2018-07-07 03:52 | CPS ---
Addendum entered by Arron Aragon 07/07/18 03:54: Original Note: Pt unable to tolerate Bipap. Ripped masks headgear off
[2018-07-07] MEDS: HEPARIN/D5w 25,000 UNITS 25,000 UNITS/250 ML IV.SOLN. 14 UNITS IV (05:20)
[2018-07-07] MEDS: Piperacil/Tazobactam 3.375 GM/50 ML ML IV (05:22)
[2018-07-07] MEDS: Ipratropium/Albuterol Sulfate 3 ML AMPUL.NEB INHALATION ×3 (06:46→19:06)
[2018-07-07 06:51] LABS: Bedside Glucose 78 mg/dL (70-110)
--- NOTE | 2018-07-07 07:54 | PCM.PROGNOTE ---
Patient Problems: Active and Suspected Problems Shortness of breath (Acute) Pulmonary embolism (Acute) NSTEMI (non-ST elevated myocardial infarction) (Acute) Pulmonary hypertension (Acute) Subjective: The patient was seen and examined at the bedside this morning. Events from the last 24 hours have been reviewed. The patient is currently afebrile, hemodynamically stable and maintaining appropriate oxygen saturations on 3 L/min via nasal cannula. He denies the presence of pain or resting shortness of breath. He additionally denies the presence of a cough. Objective: The patient's most recent lab work, culture data and imaging studies have all been personally reviewed. Blood cultures are currently pending. Surface echocardiogram revealed evidence of a moderately dilated LV with an ejection fraction of 60%. There was evidence of stage II diastolic dysfunction. Right ventricular systolic pressure was estimated to be 66 mmHg. - Physical Exam General: Alert, Cooperative, No apparent distress HEENT: Atraumatic, PERRLA, Normocephalic Oral: No Gingival or Mucosal Lesions/ Ulcerations Neck: Supple, No Nodes, Trachea Midline Lungs: No rhonchi, No wheeze, No rales, Diminished Cardiovascular: Regular rate, Regular Rhythm, Normal S1, Normal S2, Murmur Abdomen: Bowel Sounds Present, Soft, Non Tender Extremities: No clubbing, No cyanosis, No edema Skin: No breakdown Musculoskeletal: No Tenderness to Palpation of Joints or Extremities Lymphatic: No Cervical, Supraclavicular, or Inguinal Adenopathy Neurological: Neuro grossly intact Psych/Mental Status: Flat Affect Vital Signs Temp Pulse Resp BP Pulse Ox 97.8 F 86 18 111/56 L 98 07/07/18 04:09 07/07/18 07:10 07/07/18 04:09 07/07/18 04:09 07/07/18 04:09 Oxygen Flow Rate (L/min) 3 Oxygen Delivery Method Nasal Cannula Weight: 218 lb 14.704 oz Body Mass Index (BMI) 28.8 Intake and Output for Last 24 Hours 07/05/18 07/06/18 07/07/18 23:59 23:59 23:59 Intake Total 1090 / 1090 400 / 400 Output Total 420 / 420 Balance 670 / 670 400 / 400 Laboratory Tests Past 24 Hrs 07/06/18 07/06/18 07/06/18 14:15 14:15 16:55 WBC RBC Hgb Hct MCV MCH MCHC RDW RDW Differential Plt Count MPV Immature Gran % (Auto) Neut % (Auto) Lymph % (Auto) [place] % (Auto) Eos % (Auto) Baso % (Auto) Absolute Neuts (auto) Absolute Lymphs (auto) Total Counted APTT Specimen Type Sample Site pH Bicarbonate Actual POC Total CO2 Base Excess O2 Saturation O2 % ABG pCO2 ABG pO2 Luis Manuel Test Respiration Rate O2 Delivery Device EPAP IPAP Blood Gas Notified Whom Blood Gas Notified Time Sodium Potassium Chloride Carbon Dioxide Anion Gap BUN Creatinine Estim Creat Clear Calc Est GFR (MDRD) Af Amer Est GFR (MDRD) Non-Af BUN/Creatinine Ratio Glucose Calcium Troponin I 1.820 H* Triglycerides 127 Cholesterol 106 LDL Cholesterol 46 VLDL Cholesterol 25 HDL Cholesterol 35 L Urine Color Yellow Urine Clarity Sl. Cloudy Urine pH 5.0 Ur Specific [place] 1.015 Urine Protein Negative Urine Glucose (UA) Normal Urine Ketones Negative Urine Occult Blood Negative Urine Nitrite Negative Urine Bilirubin Negative Urine Urobilinogen Normal Ur Leukocyte Esterase 100 H Urine RBC 0 SEEN Urine WBC 5-10 SEEN Ur Squamous Epith Cells 0-5 SEEN Urine Bacteria 0 SEEN Urine Mucus 0 SEEN 07/06/18 07/06/18 07/06/18 18:26 19:10 21:04 WBC RBC Hgb Hct MCV MCH MCHC RDW RDW Differential Plt Count MPV Immature Gran % (Auto) Neut % (Auto) Lymph % (Auto) [place] % (Auto) Eos % (Auto) Baso % (Auto) Absolute Neuts (auto) Absolute Lymphs (auto) Total Counted APTT 85.8 H Specimen Type ART Sample Site L Radial pH 7.38 Bicarbonate Actual 22.7 POC Total CO2 24 Base Excess -2 O2 Saturation 98 O2 % 35 ABG pCO2 38.3 ABG pO2 107 H Luis Manuel Test POS Respiration Rate 12 O2 Delivery Device Bi / C PAP EPAP 6 IPAP 12 Blood Gas Notified Whom [facility] Blood Gas Notified Time 2100 Sodium Potassium Chloride Carbon Dioxide Anion Gap BUN Creatinine Estim Creat Clear Calc Est GFR (MDRD) Af Amer Est GFR (MDRD) Non-Af BUN/Creatinine Ratio Glucose Calcium Troponin I 1.620 H* Triglycerides Cholesterol LDL Cholesterol VLDL Cholesterol HDL Cholesterol Urine Color Urine Clarity Urine pH Ur Specific [place] Urine Protein Urine Glucose (UA) Urine Ketones Urine Occult Blood Urine Nitrite Urine Bilirubin Urine Urobilinogen Ur Leukocyte Esterase Urine RBC Urine WBC Ur Squamous Epith Cells Urine Bacteria Urine Mucus 07/07/18 07/07/18 07/07/18 02:05 02:05 02:05 WBC 6.5 RBC 3.51 L Hgb 10.3 L Hct 32.4 L MCV 92.3 MCH 29.3 MCHC 31.8 L RDW 14.0 RDW Differential 47.3 H Plt Count 263 MPV 9.2 Immature Gran % (Auto) 0.300 Neut % (Auto) 63.3 Lymph % (Auto) 28.7 [place] % (Auto) 4.6 Eos % (Auto) 2.9 Baso % (Auto) 0.2 Absolute Neuts (auto) 4.1 Absolute Lymphs (auto) 1.86 Total Counted Not Reportable APTT 76.1 H Specimen Type Sample Site pH Bicarbonate Actual POC Total CO2 Base Excess O2 Saturation O2 % ABG pCO2 ABG pO2 Luis Manuel Test Respiration Rate O2 Delivery Device EPAP IPAP Blood Gas Notified Whom Blood Gas Notified Time Sodium 139 Potassium 4.4 Chloride 106 Carbon Dioxide 25.0 Anion Gap 8 BUN 25 H Creatinine 1.48 H Estim Creat Clear Calc 44.24 Est GFR (MDRD) Af Amer 59 L Est GFR (MDRD) Non-Af 48 L BUN/Creatinine Ratio 16.9 Glucose 92 Calcium 8.5 Troponin I Triglycerides Cholesterol LDL Cholesterol VLDL Cholesterol HDL Cholesterol Urine Color Urine Clarity Urine pH Ur Specific [place] Urine Protein Urine Glucose (UA) Urine Ketones Urine Occult Blood Urine Nitrite Urine Bilirubin Urine Urobilinogen Ur Leukocyte Esterase Urine RBC Urine WBC Ur Squamous Epith Cells Urine Bacteria Urine Mucus POC Glucose 07/07/18 07/06/18 06:44 22:14 POC Glucose 78 104 Clinical Impression(s) from Imaging Studies Chest X-Ray 07/06/18 10:11 IMPRESSION: Patchy infiltrates in the right upper and right lower lobes as well as in the left lower lobe. Follow-up is recommended. Electronically Signed: Ramana Frost MD at 11:05 EDT Tel [phone], Service support , Chest CTA 07/06/18 11:03 IMPRESSION: Pulmonary embolism involving the right interlobar pulmonary artery and the branches as well as tiny pulmonary emboli in the left lower lobe pulmonary arterial branches. Bibasilar infiltration and small bilateral pleural effusions. Electronically Signed: Ramana Frost MD at 12:23 EDT Tel [phone], Service support , Medical Necessity - Tobacco Use Smoking Status: Unknown if ever smoked Assessment/Plan All Active Problems Shortness of breath (Acute) Pulmonary embolism (Acute) NSTEMI (non-ST elevated myocardial infarction) (Acute) Pulmonary hypertension (Acute) RECOMMENDATIONS: 1. Continue heparin drip for now. If cardiology is not planning for any form of intervention, okay to transition to oral anticoagulation regimen. 2. No indication for lower extremity Dopplers, as this would not change our management. 3. Continue to wean supplemental oxygen to maintain saturations at or above 90%. 4. Encourage incentive spirometer use and mobilize patient as tolerated. IMPRESSIONS: 1. Acute hypoxic respiratory insufficiency secondary to submassive pulmonary embolism The patient presented to the hospital with shortness of breath, with subsequent workup revealing evidence of submassive pulmonary embolism. The patient has been maintained on a heparin drip, but can be transitioned to an oral anticoagulation regimen, if cardiology is not planning any further workup. Continue to wean supplemental oxygen as tolerated. The patient will need to perform a walking oximetry study prior to consideration for discharge from the hospital. There would be no indication to obtain lower extremity Dopplers, as an IVC filter would not be indicated unless the patient does not tolerate pharmacologic anticoagulation. 2. Non-ST elevation myocardial infarction Continue medical management per cardiology recommendations. Troponin elevation is likely secondary to #1. 3. Diabetes mellitus/hypertension/BPH/dementia/advanced age Complicates care, management, recovery and prognosis. Continue basal insulin regimen as ordered. This note was generated with [employer] software. It may contain incorrect words, spelling, and punctuation that were not noted in checking the note before signing. Code Visit Inpatient E&M: 72597 Subs Hosp L2
--- NOTE | 2018-07-07 08:07 | PCM.PN.CARD ---
Subjectve: Patient resting comfortably this morning, reports much improved shortness of breath. No 24 hour events. Telemetry showed normal sinus rhythm, no significant arrhythmias. Objective: Vital Signs Temp Pulse Resp BP Pulse Ox 97.8 F 86 18 111/56 L 98 07/07/18 04:09 07/07/18 07:10 07/07/18 04:09 07/07/18 04:09 07/07/18 04:09 Oxygen Flow Rate (L/min) 3 Oxygen Delivery Method Nasal Cannula Weight: 218 lb 14.704 oz Body Mass Index (BMI) 28.8 Intake and Output for Last 24 Hours 07/05/18 07/06/18 07/07/18 23:59 23:59 23:59 Intake Total 1090 / 1090 400 / 400 Output Total 420 / 420 Balance 670 / 670 400 / 400 General: Awake, Alert, Oriented x 3 HEENT: PERRL, EOMI, Sclera Non Icteric Neck: Supple, Good ROM, No Lymph Node Enlargement Lungs: Clear to auscultation Cardiovascular: Regular Rhythm, Normal S1, Normal S2, No Murmurs, No Rubs, No Gallops Murmur Murmur: Grade 2/6, Holosystolic Vascular: No Carotid Bruits, Normal Femoral Pulses, Normal Radial Pulses, Normal Dorsalis Pedal Pulse, Normal Posterior Tibial Pulses Abdomen: Bowel Sounds Present, Soft, Non Tender, No HSM, No Organomegaly Extremities: No Cyanosis, No Clubbing, No edema Neurological: No Focal Motor or Sensory Deficit 07/06/18 14:15: Troponin I 1.820 H* 07/06/18 14:15: Triglycerides 127, Cholesterol 106, LDL Cholesterol 46, VLDL Cholesterol 25, HDL Cholesterol 35 L 07/06/18 16:55: Urine Color Yellow, Urine Clarity Sl. Cloudy, Urine pH 5.0, Ur Specific [place] 1.015, Urine Protein Negative, Urine Glucose (UA) Normal, Urine Ketones Negative, Urine Occult Blood Negative, Urine Nitrite Negative, Urine Bilirubin Negative, Urine Urobilinogen Normal, Ur Leukocyte Esterase 100 H, Urine RBC 0 SEEN, Urine WBC 5-10 SEEN 07/06/18 18:26: APTT 85.8 H 07/06/18 19:10: Troponin I 1.620 H* 07/06/18 21:04: pH 7.38, Bicarbonate Actual 22.7, POC Total CO2 24, Base Excess -2, O2 Saturation 98, ABG pCO2 38.3, ABG pO2 107 H, Luis Manuel Test POS 07/07/18 02:05: WBC 6.5, RBC 3.51 L, Hgb 10.3 L, Hct 32.4 L, MCV 92.3, MCH 29.3, MCHC 31.8 L, RDW 14.0, RDW Differential 47.3 H, Plt Count 263, MPV 9.2, Immature Gran % (Auto) 0.300, Neut % (Auto) 63.3, Lymph % (Auto) 28.7, [place] % (Auto) 4.6, Eos % (Auto) 2.9, Baso % (Auto) 0.2, Absolute Neuts (auto) 4.1, Total Counted Not Reportable 07/07/18 02:05: Sodium 139, Potassium 4.4, Chloride 106, Carbon Dioxide 25.0, Anion Gap 8, BUN 25 H, Creatinine 1.48 H, Est GFR (MDRD) Af Amer 59 L, Est GFR (MDRD) Non-Af 48 L, BUN/Creatinine Ratio 16.9, Glucose 92, Calcium 8.5 07/07/18 02:05: APTT 76.1 H Rhythm: EKG: ECHO: Stress Test: Cardiac Cath: PCI: CT Surgery: Holter monitor: EPS: PPM: CXR: Chest CT Scan: Medical Necessity - Tobacco Use Smoking Status: Unknown if ever smoked Assessment/Plan 1. Non-STEMI: The patient has initially elevated troponin of 1.77, increasing to 1.88 and decreasing to 1.62, superimposed upon acute shortness of breath, bilateral pulmonary emboli, right greater than left, and evidence of inferior posterior wall myocardial infarction on EKG and subtle inferior posterior hypokinesis on echocardiogram. In addition he has evidence of severe pulmonary hypertension with an RVSP of approximately 66 mmHg. I do not believe the patient requires urgent catheterization at this time. We will treat the patient with baby aspirin, IV heparin to keep his PTT between 50 and 70 seconds, and at some point once he recovers from this may require a stress test to assess for possible coronary ischemia. Patient is DNR/CCA, so would have a high threshold for diagnostic coronary angiogram going forward. Would not recommend beta-clara therapy at this time given his pulmonary emboli and O2 requirements. Would recommend continuing lifelong anticoagulation given his sedentary lifestyle and tendency for DVT and pulmonary emboli. This can be accomplished with either Coumadin, Xarelto, or Eliquis depending upon his creatinine clearance. Would also recommend obtaining lower extremity Dopplers to determine his DVT burden as he may require a DVT filter. 2. Fasting lipid profile: Recommend obtaining a fasting profile to further risk stratify the patient. 3. Thank you very much for the opportunity to participate in the cardiac care of your patient. Code Visit Inpatient E&M: 18113 Subs Hosp L2
[2018-07-07 08:08] LABS: Partial Thromboplast Time 62.7 Seconds (24.1-36.2)
[2018-07-07] MEDS: Aspirin 81 MG TAB.CHEW PO (09:32)
[2018-07-07] MEDS: levoFLOXacin IV 500 MG/100 ML BAG 100 MG IV (09:32)
[2018-07-07] MEDS: Fenofibrate 145 MG Tablet PO (09:33)
[2018-07-07] MEDS: Tamsulosin HCl 0.4 MG Capsule PO (09:33)
[2018-07-07] MEDS: Finasteride 5 MG Tablet PO (09:33)
[2018-07-07] MEDS: Lisinopril 5 MG Tablet PO (09:34)
--- NOTE | 2018-07-07 09:53 | PCM.PN.HOSP ---
Patient Problems: Active and Suspected Problems Shortness of breath (Acute) Pulmonary embolism (Acute) NSTEMI (non-ST elevated myocardial infarction) (Acute) Pulmonary hypertension (Acute) Subjective: Patient seen and examined. He had to be put on BIPAP overnight due to worsening SOB; he said that made him feel better, and he is now on 3L of oxygen. He denies any fever chills, any cough or chest pain, any shortness of breath, abdominal pain, any diarrhea or vomiting. 12 point Review of systems otherwise negative. Labs and vitals reviewed. He remains on oxygen and is on 3L. Vitals/I&O's: Vital Signs Temp Pulse Resp BP Pulse Ox 97.8 F 86 16 111/56 L 97 07/07/18 04:09 07/07/18 07:10 07/07/18 06:46 07/07/18 04:09 07/07/18 06:46 Oxygen Flow Rate (L/min) 3 Oxygen Delivery Method Nasal Cannula Weight: 218 lb 14.704 oz Body Mass Index (BMI) 28.8 Intake and Output for Last 24 Hours 07/05/18 07/06/18 07/07/18 23:59 23:59 23:59 Intake Total 1090 / 1090 400 / 400 Output Total 420 / 420 Balance 670 / 670 400 / 400 General: Alert, Oriented x3, Cooperative, No apparent distress HEENT: Atraumatic, PERRLA, EOMI, Normocephalic Oral: Moist Mucosa Neck: Supple, No JVD, Negative Carotid Bruits Lungs: Normal air movement, - - decreased breath sounds bibasally. No wheezing or crackles. Cardiovascular: Regular rate, Regular Rhythm, Normal S1, Normal S2, No murmurs Abdomen: Bowel Sounds Present, Soft, Non Tender, Non-Distended, No Hepato-splenomegaly Extremities: No clubbing, No cyanosis, No edema, Capillary Refill Less than 3 Seconds Skin: No rashes, No breakdown Musculoskeletal: No Tenderness to Palpation of Joints or Extremities Lymphatic: No Cervical, Supraclavicular, or Inguinal Adenopathy Neurological: Cranial nerves II-XII grossly intact, Neuro grossly intact Psych/Mental Status: Normal Affect, Appropriate, Alert and oriented to time, place, person, mood and affect Laboratory Results 07/06/18 14:15: Troponin I 1.820 H* 07/06/18 14:15: Triglycerides 127, Cholesterol 106, LDL Cholesterol 46, VLDL Cholesterol 25, HDL Cholesterol 35 L 07/06/18 16:55: Urine Color Yellow, Urine Clarity Sl. Cloudy, Urine pH 5.0, Ur Specific [place] 1.015, Urine Protein Negative, Urine Glucose (UA) Normal, Urine Ketones Negative, Urine Occult Blood Negative, Urine Nitrite Negative, Urine Bilirubin Negative, Urine Urobilinogen Normal, Ur Leukocyte Esterase 100 H, Urine RBC 0 SEEN, Urine WBC 5-10 SEEN, Ur Squamous Epith Cells 0-5 SEEN, Urine Bacteria 0 SEEN, Urine Mucus 0 SEEN 07/06/18 18:26: APTT 85.8 H 07/06/18 19:10: Troponin I 1.620 H* 07/06/18 21:04: Specimen Type ART, Sample Site L Radial, pH 7.38, Bicarbonate Actual 22.7, POC Total CO2 24, Base Excess -2, O2 Saturation 98, O2 % 35, ABG pCO2 38.3, ABG pO2 107 H, Luis Manuel Test POS, Respiration Rate 12, O2 Delivery Device Bi / C PAP, EPAP 6, IPAP 12, Blood Gas Notified Whom [facility] , Blood Gas Notified Time 2100 07/06/18 22:14: POC Glucose 104 07/07/18 02:05: WBC 6.5, RBC 3.51 L, Hgb 10.3 L, Hct 32.4 L, MCV 92.3, MCH 29.3, MCHC 31.8 L, RDW 14.0, RDW Differential 47.3 H, Plt Count 263, MPV 9.2, Immature Gran % (Auto) 0.300, Neut % (Auto) 63.3, Lymph % (Auto) 28.7, [place] % (Auto) 4.6, Eos % (Auto) 2.9, Baso % (Auto) 0.2, Absolute Neuts (auto) 4.1, Absolute Lymphs (auto) 1.86, Total Counted Not Reportable 07/07/18 02:05: Sodium 139, Potassium 4.4, Chloride 106, Carbon Dioxide 25.0, Anion Gap 8, BUN 25 H, Creatinine 1.48 H, Estim Creat Clear Calc 44.24, Est GFR (MDRD) Af Amer 59 L, Est GFR (MDRD) Non-Af 48 L, BUN/Creatinine Ratio 16.9, Glucose 92, Calcium 8.5 07/07/18 02:05: APTT 76.1 H 07/07/18 06:44: POC Glucose 78 07/07/18 07:45: APTT 62.7 H Diagnostic Data Chest X-Ray 07/06/18 10:11 IMPRESSION: Patchy infiltrates in the right upper and right lower lobes as well as in the left lower lobe. Follow-up is recommended. Electronically Signed: Ramana Frost MD at 11:05 EDT Tel [phone], Service support , Chest CTA 07/06/18 11:03 IMPRESSION: Pulmonary embolism involving the right interlobar pulmonary artery and the branches as well as tiny pulmonary emboli in the left lower lobe pulmonary arterial branches. Bibasilar infiltration and small bilateral pleural effusions. Electronically Signed: Ramana Frost MD at 12:23 EDT Tel [phone], Service support , Current Medications Acetaminophen (Tylenol) 650 mg PO Q4H PRN PRN PRN Reason: pain or fever Albuterol Sulfate (Ventolin Aerosols) 2.5 mg INHALATION Q2H PRN PRN PRN Reason: dyspnea, wheezing Albuterol/Ipratropium (Duoneb) 3 ml INHALATION Q4HWA.RT [facility] Last Admin: 07/07/18 06:46 Dose: 3 ml Artificial Tears (Tears Naturale, Artificial Tears) 2 drop OPHTHALMIC BID PRN PRN Reason: Dry Eye Aspirin (Aspirin, Baby) 81 mg PO DAILY@0800 [facility] Last Admin: 07/07/18 09:32 Dose: 81 mg Cyclosporine (Restasis Ophthalmic) 1 drop EACH EYE Q12H PRN [facility] Dextrose (D50w Syringe) 0 gm IV X1 PRN; Protocol PRN Reason: Hypoglycemia Fenofibrate (Tricor) 145 mg PO DAILY [facility] Last Admin: 07/07/18 09:33 Dose: 145 mg Finasteride (Proscar) 5 mg PO DAILY [facility] Last Admin: 07/07/18 09:33 Dose: 5 mg Glucagon () 1 mg IM .X1 PRN PRN Reason: Hypoglycemia Heparin Sodium/Dextrose () 25,000 units in 250 mls @ 14 mls/hr IV .[id number] [facility]; As Directed PRN Reason: Protocol Last Admin: 07/07/18 05:20 Dose: 14 mls/hr Insulin Glargine (Lantus (Bkc)) 42 units SC QHS [facility] Last Admin: 07/06/18 23:07 Dose: Not Given Insulin Glargine (Lantus (Bkc)) 80 units SC DAILY [facility] Insulin Human Lispro (Humalog Kwikpen ([facility])) 0 unit SQ ACHS [facility] PRN Reason: Protocol Last Admin: 07/07/18 07:30 Dose: Not Given Lisinopril (Zestril) 5 mg PO DAILY [facility] Last Admin: 07/07/18 09:34 Dose: 5 mg Magnesium Hydroxide (Milk Of Magnesia) 30 ml PO DAILY PRN PRN PRN Reason: Constipation Senna (Senokot) 1 tablet PO DAILY PRN PRN Reason: Constipation Sertraline HCl (Zoloft) 25 mg PO QHS [facility] Last Admin: 07/06/18 22:12 Dose: Not Given Sodium Biphosphate/Sodium Phosphate (Fleet Enema) 1 bottle RECTAL DAILY PRN PRN Reason: Constipation Sodium Chloride () 5 - 30 ml IV UD PRN PRN Reason: SALINE FLUSH Tamsulosin HCl (Flomax) 0.4 mg PO DAILY [facility] Last Admin: 07/07/18 09:33 Dose: 0.4 mg Medical Necessity - Tobacco Use Smoking Status: Unknown if ever smoked Assessment/Plan All Active Problems Shortness of breath (Acute) Pulmonary embolism (Acute) NSTEMI (non-ST elevated myocardial infarction) (Acute) Pulmonary hypertension (Acute) 82-year-old male admitted from the detention with complaint of shortness of breath of sudden onset. 1. submassive bilateral pulmonary embolism feels better today. On heparin drip. 2D echo: moderately dilated LV with EF of 60% and stage 2 diastolic dysfunction. 1-2+ mitral valve insufficiency and 1+ tricuspid valve insufficiency. RVSP is 66mmhg indicating severe pulmonary hypertension and fixed immobile right coronary cusp of aortic valve. also showed subtle inferior posterior hypokinesis initial troponin 1.770->1.870->1.620 denies ever having colonoscopy or any malignancy apart from skin cancer in the past. will need age appropriate screening on outpatient basis. pulmonology on board will defer duplex of LEs as it wont jacket changer of PE. 2. NST ELIN initial troponin of 1.77->1.82->1.620. EKG showed no acute ST changes. on aspirin 81mg daily and atorvastatin 40mg qhs. cardiology on board. advocate medical management for now. beta clara therapy not recommended at this time, due to pulmonary emboli and oxygen requirements. may need stress test in the future once this acute episode is over. High threshold for coronary angiogram due to DNRCCA code status. cath as documented above 3. Acute hypoxic respiratory failure due to PE and pneumonia remains on 3L of oxygen. Had to be put on BIPAP overnight to help with SOB will titrate oxygen to maintain saturation >92% 4. Health associated pneumonia SIRS criteria now 0/4. was being managed for pneumonia in the SNF Chest x-ray showed patchy infiltrates in right upper lobe, right lower lobe and left lower lobe. CT angiogram also showed small bilateral pleural effusions with bibasilar infiltration or atelectasis. on IV vancomycin, zosyn and levaquin; blood cultures pending 5. MIKE: Cr was 1.72 on admission, trended down to 1.48 this morning. Was started on IVF which was stopped due to increased crackles bibasally. 6. Diabetes mellitus: on lantus 80IU in the morning and 42IU in the evening. on ISS. [place] ACHS. 7. BPH: on flomax and finasteride. DVT prophylaxis: On heparin drip Code status: DNRCCA. This note was generated with [employer] dictation software. It may contain incorrect words, spelling, and punctuation that were not noted in checking the note before signing. Code Visit Inpatient E&M: 66726 Subs Hosp L3
[2018-07-07 10:46] LABS: Bedside Glucose 103 mg/dL (70-110)
--- NOTE | 2018-07-07 11:19 | CASEMGMT ---
[facility] faxed updates to [facility]. [facility] also called [facility] and spoke with Janet letting her know patient will be here a few more days and that he will not need a bi-pap when he returns. Plan: Return to [facility] Clare ROSAS MSW
[2018-07-07 14:47] LABS: Partial Thromboplast Time 56.4 Seconds (24.1-36.2)
[2018-07-07 15:56] LABS: Bedside Glucose 143 mg/dL (70-110)
--- NOTE | 2018-07-07 19:07 | CPS ---
pt breathing shallow, asked him to take a big deep breath but continued to breath shallow.
[2018-07-07] MEDS: Insulin Lispro 100 UNIT/ML INSULN.PEN SQ (21:59)
[2018-07-07] MEDS: Sertraline 50 MG Tablet 25 MG PO (22:00)
[2018-07-07 22:01] LABS: Bedside Glucose 184 mg/dL (70-110)
[2018-07-08] VITALS (18 sets, daily range): BP systolic 98–103; BP diastolic 50–60; PULSE 68–97; RESP 16–18; TEMP 36.3–36.8; O2SAT 93–96
[2018-07-08] MEDS: HEPARIN/D5w 25,000 UNITS 25,000 UNITS/250 ML IV.SOLN. 13 UNITS IV (00:41)
[2018-07-08 05:59] LABS: Absolute Lymphocyte Count 1.33 X10^3/ul (0.83-4.51); Absolute Neutrophil Count 3.1 X10^3/uL (2.0-7.7); Basophil# 0.02 X10^3/uL; Basophil% 0.4 % (0-1); Eosinophil# 0.13 X10^3/uL; Eosinophils% 2.6 % (0-5); Hemoglobin 10.4 g/dl (13.0-16.5); Lymphocyte # 1.33 X10^3/ul (4.0); Lymphocyte % 26.8 % (19-41); Mean Corp Hgb Conc 32.5 g/gl (32-36); Mean Corpuscular Hgb 30.1 pg (27.0-32.0); Mean Corpuscular Volume 92.5 fL (80-94); Mean Platelet Vol. 9.5 fl (6.2-12.0); Monocyte# 0.33 X10^3/uL; Monocyte% 6.6 % (0-10); Neutrophil # 3.14 X10^3/uL (2.7-7.7); Neutrophil % 63.2 % (47-70); Platelet Count 286 K/mm3 (150-450); RBC Distribution Width CV 13.7 % (11.6-14.6); RBC Distribution Width SD 44.7 fl (35.1-43.9); Red Blood Count 3.46 M/mm3 (4.6-6.2)
[2018-07-08 06:04] LABS: POSITIVE COUNT NO; POSITIVE DIFFERENTIAL NO; POSITIVE MORPHOLOGY NO
[2018-07-08 06:24] LABS: Anion Gap 6 (5-15); BUN 20 mg/dL (7-18); BUN/Creat Ratio 16.3 RATIO (10-20); Calcium,Total 8.8 mg/dL (8.5-10.1); Chloride 107 mmol/L (98-107); Creatinine, Serum 1.23 mg/dL (0.70-1.30); EST Glomerular Filtration Rate 60 mL/min (>60); Est Glom Filt Rate - Afr Amer 73 mL/min (>60); Estimated Creatinine Clearance 53.23 ml/min; Glucose 169 mg/dL (74-106); Potassium 4.3 mmol/L (3.5-5.1); Sodium Level 139 mmol/L (136-145)
[2018-07-08 06:55] LABS: Bedside Glucose 173 mg/dL (70-110)
[2018-07-08] MEDS: Ipratropium/Albuterol Sulfate 3 ML AMPUL.NEB INHALATION ×4 (06:56→19:30)
--- NOTE | 2018-07-08 07:02 | PCM.PROGNOTE ---
Patient Problems: Active and Suspected Problems Shortness of breath (Acute) Pulmonary embolism (Acute) NSTEMI (non-ST elevated myocardial infarction) (Acute) Pulmonary hypertension (Acute) Subjective: The patient was seen and examined at the bedside this morning. Events from the last 24 hours have been reviewed. The patient is currently afebrile, hemodynamically stable and maintaining appropriate oxygen saturations on 2 L/min via nasal cannula. Blood counts remain stable. Antibiotics were discontinued yesterday. The patient remains on a heparin drip. No overnight issues were noted. The patient denies shortness of breath, chest pain or cough. Objective: The patient's most recent lab work, culture data and imaging studies have all been personally reviewed. Blood cultures are currently pending. Surface echocardiogram revealed evidence of a moderately dilated LV with an ejection fraction of 60%. There was evidence of stage II diastolic dysfunction. Right ventricular systolic pressure was estimated to be 66 mmHg. - Physical Exam General: Alert, Cooperative, No apparent distress HEENT: Atraumatic, PERRLA, Normocephalic Oral: No Gingival or Mucosal Lesions/ Ulcerations Neck: Supple, No Nodes, Trachea Midline Lungs: No rhonchi, No wheeze, No rales, Diminished Cardiovascular: Regular rate, Regular Rhythm, Normal S1, Normal S2, Murmur, No rub noted, No Gallop Abdomen: Bowel Sounds Present, Soft, Non Tender, Non-Distended Extremities: No clubbing, No cyanosis, No edema, Capillary Refill Less than 3 Seconds Skin: No breakdown Musculoskeletal: No Tenderness to Palpation of Joints or Extremities Lymphatic: No Cervical, Supraclavicular, or Inguinal Adenopathy Neurological: Neuro grossly intact Psych/Mental Status: Flat Affect Vital Signs Temp Pulse Resp BP Pulse Ox 98.3 F 97 18 103/50 L 96 07/08/18 03:45 07/08/18 03:45 07/08/18 03:45 07/08/18 03:45 07/08/18 03:45 Oxygen Flow Rate (L/min) 2 Oxygen Delivery Method Nasal Cannula Weight: 218 lb 14.704 oz Body Mass Index (BMI) 28.8 Intake and Output for Last 24 Hours 07/06/18 07/07/18 07/08/18 23:59 23:59 23:59 Intake Total 1090 / 1090 1109 / 1109 90.1 / 90.1 Output Total 420 / 420 Balance 670 / 670 1109 / 1109 90.1 / 90.1 Laboratory Tests Past 24 Hrs 07/07/18 07/07/18 07/08/18 07:45 14:10 05:30 WBC 5.0 RBC 3.46 L Hgb 10.4 L Hct 32.0 L MCV 92.5 MCH 30.1 MCHC 32.5 RDW 13.7 RDW Differential 44.7 H Plt Count 286 MPV 9.5 Immature Gran % (Auto) 0.400 Neut % (Auto) 63.2 Lymph % (Auto) 26.8 [place] % (Auto) 6.6 Eos % (Auto) 2.6 Baso % (Auto) 0.4 Absolute Neuts (auto) 3.1 Absolute Lymphs (auto) 1.33 Total Counted Not Reportable APTT 62.7 H 56.4 H Sodium Potassium Chloride Carbon Dioxide Anion Gap BUN Creatinine Estim Creat Clear Calc Est GFR (MDRD) Af Amer Est GFR (MDRD) Non-Af BUN/Creatinine Ratio Glucose Calcium 07/08/18 05:30 WBC RBC Hgb Hct MCV MCH MCHC RDW RDW Differential Plt Count MPV Immature Gran % (Auto) Neut % (Auto) Lymph % (Auto) [place] % (Auto) Eos % (Auto) Baso % (Auto) Absolute Neuts (auto) Absolute Lymphs (auto) Total Counted APTT Sodium 139 Potassium 4.3 Chloride 107 Carbon Dioxide 26.0 Anion Gap 6 BUN 20 H Creatinine 1.23 Estim Creat Clear Calc 53.23 Est GFR (MDRD) Af Amer 73 Est GFR (MDRD) Non-Af 60 BUN/Creatinine Ratio 16.3 Glucose 169 H Calcium 8.8 POC Glucose 07/08/18 07/07/18 07/07/18 06:52 21:39 15:51 POC Glucose 173 H 184 H 143 H 07/07/18 10:39 POC Glucose 103 Clinical Impression(s) from Imaging Studies Chest X-Ray 07/06/18 10:11 IMPRESSION: Patchy infiltrates in the right upper and right lower lobes as well as in the left lower lobe. Follow-up is recommended. Electronically Signed: Ramana Frost MD at 11:05 EDT Tel [phone], Service support , Chest CTA 07/06/18 11:03 IMPRESSION: Pulmonary embolism involving the right interlobar pulmonary artery and the branches as well as tiny pulmonary emboli in the left lower lobe pulmonary arterial branches. Bibasilar infiltration and small bilateral pleural effusions. Electronically Signed: Ramana Frost MD at 12:23 EDT Tel [phone], Service support , Medical Necessity - Tobacco Use Smoking Status: Unknown if ever smoked Assessment/Plan All Active Problems Shortness of breath (Acute) Pulmonary embolism (Acute) NSTEMI (non-ST elevated myocardial infarction) (Acute) Pulmonary hypertension (Acute) RECOMMENDATIONS: 1. The patient can be transitioned to an oral anticoagulation regimen for my perspective. Eliquis or Xarelto would be considerations. 2. Continue to wean supplemental oxygen to maintain saturations at or above 90%. 3. Encourage incentive spirometer use and mobilize patient as tolerated. IMPRESSIONS: 1. Acute hypoxic respiratory insufficiency secondary to submassive pulmonary embolism The patient presented to the hospital with shortness of breath, with subsequent workup revealing evidence of submassive pulmonary embolism. The patient has been maintained on a heparin drip, but can be transitioned to an oral anticoagulation regimen, from my perspective. Continue to wean supplemental oxygen as tolerated. The patient will need to perform a walking oximetry study prior to consideration for discharge from the hospital. There would be no indication to obtain lower extremity Dopplers, as an IVC filter would not be indicated unless the patient does not tolerate pharmacologic anticoagulation. The patient CT chest revealed small bilateral pleural effusions with associated compressive atelectasis. Low clinical suspicion for underlying pulmonary infectious process, as the patient has not had a cough, there is no evidence of leukocytosis and he has been afebrile. Antibiotics have been discontinued. 2. Non-ST elevation myocardial infarction Continue medical management per cardiology recommendations. Troponin elevation is likely secondary to #1. 3. Diabetes mellitus/hypertension/BPH/dementia/advanced age Complicates care, management, recovery and prognosis. Continue basal insulin regimen as ordered. This note was generated with [employer] software. It may contain incorrect words, spelling, and punctuation that were not noted in checking the note before signing. Code Visit Inpatient E&M: 68158 Subs Hosp L2
[2018-07-08 07:46] LABS: Partial Thromboplast Time 57.5 Seconds (24.1-36.2)
[2018-07-08] MEDS: Fenofibrate 145 MG Tablet PO (08:45)
[2018-07-08] MEDS: Aspirin 81 MG TAB.CHEW PO (08:45)
[2018-07-08] MEDS: Insulin Lispro 100 UNIT/ML INSULN.PEN SQ ×4 (08:45→22:11)
[2018-07-08] MEDS: Tamsulosin HCl 0.4 MG Capsule PO (08:46)
[2018-07-08] MEDS: Lisinopril 5 MG Tablet PO (08:46)
[2018-07-08] MEDS: Finasteride 5 MG Tablet PO (08:46)
--- NOTE | 2018-07-08 10:21 | PCM.PN.HOSP ---
Patient Problems: Active and Suspected Problems Shortness of breath (Acute) Pulmonary embolism (Acute) NSTEMI (non-ST elevated myocardial infarction) (Acute) Pulmonary hypertension (Acute) Subjective: Patient seen and examined. He was lying comfortably in bed. He denied any fever chills, any cough or chest pain, shortness of breath, abdominal pain, any diarrhea vomiting. Review of systems is otherwise negative. Discussed with cardiology. No plans for any intervention now and may need stress test after he recovers from acute PE. Labs and vitals reviewed. 12 point review of systems otherwise negative. Vitals/I&O's: Vital Signs Temp Pulse Resp BP Pulse Ox 98.3 F 95 18 101/57 L 96 07/08/18 09:45 07/08/18 09:45 07/08/18 09:45 07/08/18 09:45 07/08/18 09:45 Oxygen Flow Rate (L/min) 1 Oxygen Delivery Method Nasal Cannula Weight: 218 lb 14.704 oz Body Mass Index (BMI) 28.8 Intake and Output for Last 24 Hours 07/06/18 07/07/18 07/08/18 23:59 23:59 23:59 Intake Total 1090 / 1090 1109 / 1109 90.1 / 90.1 Output Total 420 / 420 Balance 670 / 670 1109 / 1109 90.1 / 90.1 General: Alert, Oriented x3, Cooperative, No apparent distress HEENT: Atraumatic, PERRLA, EOMI, Normocephalic Oral: Dry Mucosa Neck: Supple, No JVD, Negative Carotid Bruits Lungs: - - decreased breath sounds bibasally, with coarse crackles in left mid and lower lung silva. Cardiovascular: Regular rate, Regular Rhythm, Normal S1, Normal S2, No murmurs Abdomen: Bowel Sounds Present, Soft, Non Tender, Non-Distended, No Hepato-splenomegaly Extremities: No clubbing, No cyanosis, No edema, Capillary Refill Less than 3 Seconds Skin: No rashes, No breakdown Musculoskeletal: No Tenderness to Palpation of Joints or Extremities Lymphatic: No Cervical, Supraclavicular, or Inguinal Adenopathy Neurological: Cranial nerves II-XII grossly intact, Motor Exam 5/5 strength throughout Psych/Mental Status: Normal Affect, Appropriate, Alert and oriented to time, place, person, mood and affect Laboratory Results 07/07/18 10:39: POC Glucose 103 07/07/18 14:10: APTT 56.4 H 07/07/18 15:51: POC Glucose 143 H 07/07/18 21:39: POC Glucose 184 H 07/08/18 05:30: WBC 5.0, RBC 3.46 L, Hgb 10.4 L, Hct 32.0 L, MCV 92.5, MCH 30.1, MCHC 32.5, RDW 13.7, RDW Differential 44.7 H, Plt Count 286, MPV 9.5, Immature Gran % (Auto) 0.400, Neut % (Auto) 63.2, Lymph % (Auto) 26.8, [place] % (Auto) 6.6, Eos % (Auto) 2.6, Baso % (Auto) 0.4, Absolute Neuts (auto) 3.1, Absolute Lymphs (auto) 1.33, Total Counted Not Reportable 07/08/18 05:30: Sodium 139, Potassium 4.3, Chloride 107, Carbon Dioxide 26.0, Anion Gap 6, BUN 20 H, Creatinine 1.23, Estim Creat Clear Calc 53.23, Est GFR (MDRD) Af Amer 73, Est GFR (MDRD) Non-Af 60, BUN/Creatinine Ratio 16.3, Glucose 169 H, Calcium 8.8 07/08/18 05:30: APTT 57.5 H 07/08/18 06:52: POC Glucose 173 H Diagnostic Data Chest X-Ray 07/06/18 10:11 IMPRESSION: Patchy infiltrates in the right upper and right lower lobes as well as in the left lower lobe. Follow-up is recommended. Electronically Signed: Ramana Frost MD at 11:05 EDT Tel [phone], Service support , Chest CTA 07/06/18 11:03 IMPRESSION: Pulmonary embolism involving the right interlobar pulmonary artery and the branches as well as tiny pulmonary emboli in the left lower lobe pulmonary arterial branches. Bibasilar infiltration and small bilateral pleural effusions. Electronically Signed: Ramana Frost MD at 12:23 EDT Tel [phone], Service support , Current Medications Acetaminophen (Tylenol) 650 mg PO Q4H PRN PRN PRN Reason: pain or fever Albuterol Sulfate (Ventolin Aerosols) 2.5 mg INHALATION Q2H PRN PRN PRN Reason: dyspnea, wheezing Albuterol/Ipratropium (Duoneb) 3 ml INHALATION Q4HWA.RT [facility] Last Admin: 07/08/18 06:56 Dose: 3 ml Apixaban (Eliquis) 5 mg PO BID [facility] Artificial Tears (Tears Naturale, Artificial Tears) 2 drop OPHTHALMIC BID PRN PRN Reason: Dry Eye Aspirin (Aspirin, Baby) 81 mg PO DAILY@0800 [facility] Last Admin: 07/08/18 08:45 Dose: 81 mg Dextrose (D50w Syringe) 0 gm IV X1 PRN; Protocol PRN Reason: Hypoglycemia Fenofibrate (Tricor) 145 mg PO DAILY [facility] Last Admin: 07/08/18 08:45 Dose: 145 mg Finasteride (Proscar) 5 mg PO DAILY [facility] Last Admin: 07/08/18 08:46 Dose: 5 mg Glucagon () 1 mg IM .X1 PRN PRN Reason: Hypoglycemia Insulin Glargine (Lantus (Bkc)) 42 units SC QHS [facility] Last Admin: 07/07/18 22:00 Dose: 42 units Insulin Glargine (Lantus (Bkc)) 80 units SC DAILY [facility] Last Admin: 07/08/18 08:33 Dose: Not Given Insulin Human Lispro (Humalog Kwikpen (Bkc)) 0 unit SQ ACHS [facility] PRN Reason: Protocol Last Admin: 07/08/18 08:45 Dose: 2 units Lisinopril (Zestril) 5 mg PO DAILY [facility] Last Admin: 07/08/18 08:46 Dose: 5 mg Magnesium Hydroxide (Milk Of Magnesia) 30 ml PO DAILY PRN PRN PRN Reason: Constipation Senna (Senokot) 1 tablet PO DAILY PRN PRN Reason: Constipation Sertraline HCl (Zoloft) 25 mg PO QHS [facility] Last Admin: 07/07/18 22:00 Dose: 25 mg Sodium Biphosphate/Sodium Phosphate (Fleet Enema) 1 bottle RECTAL DAILY PRN PRN Reason: Constipation Sodium Chloride () 5 - 30 ml IV UD PRN PRN Reason: SALINE FLUSH Tamsulosin HCl (Flomax) 0.4 mg PO DAILY [facility] Last Admin: 07/08/18 08:46 Dose: 0.4 mg Medical Necessity - Tobacco Use Smoking Status: Unknown if ever smoked Assessment/Plan All Active Problems Shortness of breath (Acute) Pulmonary embolism (Acute) NSTEMI (non-ST elevated myocardial infarction) (Acute) Pulmonary hypertension (Acute) 82-year-old male admitted from the detention with complaint of shortness of breath of sudden onset. 1. submassive bilateral pulmonary embolism feels better today. On heparin drip. 2D echo: moderately dilated LV with EF of 60% and stage 2 diastolic dysfunction. 1-2+ mitral valve insufficiency and 1+ tricuspid valve insufficiency. RVSP is 66mmhg indicating severe pulmonary hypertension and fixed immobile right coronary cusp of aortic valve. also showed subtle inferior posterior hypokinesis initial troponin 1.770->1.870->1.620 duplex of LEs was negative for any DVT pulmonology on board discussed with cardiology; not planning any active intervention will dc heparin drip and start PO eliquis 5mg bid denies ever having colonoscopy or any malignancy apart from skin cancer in the past. will need age appropriate screening on outpatient basis. pulmonology on board 2. NST ELIN initial troponin of 1.77->1.82->1.620. EKG showed no acute ST changes. on aspirin 81mg daily and atorvastatin 40mg qhs. cardiology on board. advocate medical management for now. beta clara therapy not recommended at this time, due to pulmonary emboli and oxygen requirements. may need stress test in the future once this acute episode is over. High threshold for coronary angiogram due to DNRCCA code status. 3. Acute hypoxic respiratory failure due to PE and pneumonia Down to 1 L of oxygen. he remained stable. The goal is to get patient off oxygen onto room air as he is on room air in detention. 4. Health associated pneumonia SIRS criteria remains 0/4. was being managed for pneumonia in the SNF Chest x-ray showed patchy infiltrates in right upper lobe, right lower lobe and left lower lobe. CT angiogram also showed small bilateral pleural effusions with bibasilar infiltration or atelectasis. on IV vancomycin, zosyn and levaquin; blood cultures pending 5. MIKE: resolved. Cr was 1.72 on admission, now down to 1.23 today 6. Diabetes mellitus: on lantus 80IU in the morning and 42IU in the evening. Had asymptomatic glycemia yesterday so Lantus morning dose was held. glucose level today is 170s. will give lantus 30IU this morning and continue 42IU in the evening. Will adjust as needed. on ISS. [place] ACHS. 7. BPH: on flomax and finasteride. DVT prophylaxis: on eliquis. Heparin drip stopped. Code status: DNRCCA. Disposition: for likely DC tomorrow. This note was generated with [employer] dictation software. It may contain incorrect words, spelling, and punctuation that were not noted in checking the note before signing. Code Visit Inpatient E&M: 45757 Subs Hosp L3
[2018-07-08] MEDS: APIXABAN 5 MG TABLET PO ×2 (11:15→22:11)
[2018-07-08 11:26] LABS: Bedside Glucose 189 mg/dL (70-110)
--- NOTE | 2018-07-08 11:29 | CASEMGMT ---
AUTUMN called Janet at [facility] and let her know patient will likely return tomorrow. AUTUMN faxed her updates. AUTUMN told her as soon as OT sees him, AUTUMN will fax that evaluation. Plan: d/c back to [facility] Clare ROSAS MSW
--- NOTE | 2018-07-08 15:51 | PCM.PN.CARD ---
Subjectve: Patient resting comfortably in bed. No 24 hour events. Resting comfortably. Telemetry negative. Objective: Vital Signs Temp Pulse Resp BP Pulse Ox 98.3 F 94 16 101/57 L 96 07/08/18 09:45 07/08/18 15:05 07/08/18 15:05 07/08/18 09:45 07/08/18 09:45 Oxygen Flow Rate (L/min) 1 Oxygen Delivery Method Nasal Cannula Weight: 218 lb 14.704 oz Body Mass Index (BMI) 28.8 Intake and Output for Last 24 Hours 07/06/18 07/07/18 07/08/18 23:59 23:59 23:59 Intake Total 1090 / 1090 1109 / 1109 482.1 / 482.1 Output Total 420 / 420 Balance 670 / 670 1109 / 1109 482.1 / 482.1 General: Awake, Alert, Oriented x 3 HEENT: PERRL, EOMI, Sclera Non Icteric Neck: Supple, Good ROM, No Lymph Node Enlargement Lungs: Clear to auscultation Cardiovascular: Regular Rhythm, Normal S1, Normal S2, No Rubs, No Gallops Murmur Murmur: Grade 2/6, Holosystolic Vascular: No Carotid Bruits, Normal Femoral Pulses, Normal Radial Pulses, Normal Dorsalis Pedal Pulse, Normal Posterior Tibial Pulses Abdomen: Bowel Sounds Present, Soft, Non Tender, No HSM, No Organomegaly Extremities: No Cyanosis, No Clubbing, No edema Neurological: No Focal Motor or Sensory Deficit 07/08/18 05:30: WBC 5.0, RBC 3.46 L, Hgb 10.4 L, Hct 32.0 L, MCV 92.5, MCH 30.1, MCHC 32.5, RDW 13.7, RDW Differential 44.7 H, Plt Count 286, MPV 9.5, Immature Gran % (Auto) 0.400, Neut % (Auto) 63.2, Lymph % (Auto) 26.8, [place] % (Auto) 6.6, Eos % (Auto) 2.6, Baso % (Auto) 0.4, Absolute Neuts (auto) 3.1, Total Counted Not Reportable 07/08/18 05:30: Sodium 139, Potassium 4.3, Chloride 107, Carbon Dioxide 26.0, Anion Gap 6, BUN 20 H, Creatinine 1.23, Est GFR (MDRD) Af Amer 73, Est GFR (MDRD) Non-Af 60, BUN/Creatinine Ratio 16.3, Glucose 169 H, Calcium 8.8 07/08/ 05:30: APTT 57.5 H Rhythm: EKG: ECHO: Stress Test: Cardiac Cath: PCI: CT Surgery: Holter monitor: EPS: PPM: CXR: Chest CT Scan: Medical Necessity - Tobacco Use Smoking Status: Unknown if ever smoked Assessment/Plan 1. Non-STEMI: The patient has initially elevated troponin of 1.77, increasing to 1.88 and decreasing to 1.62, superimposed upon acute shortness of breath, bilateral pulmonary emboli, right greater than left, and evidence of inferior posterior wall myocardial infarction on EKG and subtle inferior posterior hypokinesis on echocardiogram. In addition he has evidence of severe pulmonary hypertension with an RVSP of approximately 66 mmHg. I do not believe the patient requires urgent catheterization at this time. We will treat the patient with baby aspirin, switch to Eliquis or Xarelto today, and at some point once he recovers from this may require a stress test to assess for possible coronary ischemia. Patient is DNR/CCA, so would have a high threshold for diagnostic coronary angiogram going forward. Would not recommend beta-clara therapy at this time given his pulmonary emboli and O2 requirements. Would recommend continuing lifelong anticoagulation given his sedentary lifestyle and tendency for DVT and pulmonary emboli. This can be accomplished with either Coumadin, Xarelto, or Eliquis depending upon his creatinine clearance. Bilateral lower extremity Dopplers negative. No DVT filter recommended at this time. 2. Fasting lipid profile: Recommend obtaining a fasting profile to further risk stratify the patient. 3. Thank you very much for the opportunity to participate in the cardiac care of your patient. Patient may be discharged home. We will sign off. We will see the patient in the office going forward. Code Visit Inpatient E&M: 75481 Subs Hosp L2
[2018-07-08] MEDS: Metoprolol Tartrate 25 MG Tablet 12.5 MG PO (16:54)
[2018-07-08 17:25] LABS: Thyroid Stim Hormone (TSH) 1.43 uIU/mL (0.358-3.74)
[2018-07-08] MEDS: Sertraline 50 MG Tablet 25 MG PO (22:13)
[2018-07-09] VITALS (11 sets, daily range): BP systolic 90–108; BP diastolic 52–60; PULSE 80–89; RESP 14–18; TEMP 36.3–36.6; O2SAT 93–96
[2018-07-09 00:16] LABS: Bedside Glucose 183 mg/dL (70-110)
[2018-07-09 00:41] LABS: Bedside Glucose 173 mg/dL (70-110)
[2018-07-09 06:08] LABS: Partial Thromboplast Time 38.4 Seconds (24.1-36.2)
[2018-07-09] MEDS: Ipratropium/Albuterol Sulfate 3 ML AMPUL.NEB INHALATION ×2 (07:02→11:17)
[2018-07-09 07:06] LABS: Bedside Glucose 106 mg/dL (70-110)
--- NOTE | 2018-07-09 07:25 | PCM.PROGNOTE ---
Patient Problems: Active and Suspected Problems Shortness of breath (Acute) Pulmonary embolism (Acute) NSTEMI (non-ST elevated myocardial infarction) (Acute) Pulmonary hypertension (Acute) Subjective: The patient was seen and examined at the bedside this morning. Events from the last 24 hours have been reviewed. The patient is currently afebrile, hemodynamically stable and maintaining appropriate oxygen saturations on room air. The patient was started on Eliquis yesterday. Objective: The patient's most recent lab work, culture data and imaging studies have all been personally reviewed. Blood cultures are currently pending. Surface echocardiogram revealed evidence of a moderately dilated LV with an ejection fraction of 60%. There was evidence of stage II diastolic dysfunction. Right ventricular systolic pressure was estimated to be 66 mmHg. - Physical Exam General: Alert, Cooperative, No apparent distress HEENT: Atraumatic, PERRLA, Normocephalic Oral: No Gingival or Mucosal Lesions/ Ulcerations Neck: Supple, No Nodes, Trachea Midline Lungs: No rhonchi, No wheeze, No rales, Diminished Cardiovascular: Regular rate, Regular Rhythm, Normal S1, Normal S2, Murmur, No rub noted, No Gallop Abdomen: Bowel Sounds Present, Soft, Non Tender, Non-Distended Extremities: No clubbing, No cyanosis, No edema Skin: No breakdown Musculoskeletal: No Tenderness to Palpation of Joints or Extremities Lymphatic: No Cervical, Supraclavicular, or Inguinal Adenopathy Neurological: Neuro grossly intact Psych/Mental Status: Normal Affect, Appropriate Vital Signs Temp Pulse Resp BP Pulse Ox 97.8 F 80 16 103/54 L 94 07/09/18 04:05 07/09/18 04:05 07/09/18 04:05 07/09/18 04:05 07/09/18 04:10 Oxygen Flow Rate (L/min) 0.5 Oxygen Delivery Method Room Air Weight: 218 lb 14.704 oz Body Mass Index (BMI) 28.8 Intake and Output for Last 24 Hours 07/07/18 07/08/18 07/09/18 23:59 23:59 23:59 Intake Total 1109 / 1109 782.1 / 782.1 Balance 1109 / 1109 782.1 / 782.1 Laboratory Tests Past 24 Hrs 07/08/18 07/08/18 07/09/18 05:30 05:30 05:15 APTT 57.5 H 38.4 H TSH 1.43 POC Glucose 07/09/18 07/08/18 07/08/18 06:54 22:06 16:04 POC Glucose 106 183 H 173 H 07/08/18 11:12 POC Glucose 189 H Labs (Last 48 Hours) 07/07/18 07/07/18 07/07/18 07:45 10:39 14:10 WBC RBC Hgb Hct MCV MCH MCHC RDW RDW Differential Plt Count MPV Immature Gran % (Auto) Neut % (Auto) Lymph % (Auto) [place] % (Auto) Eos % (Auto) Baso % (Auto) Absolute Neuts (auto) Absolute Lymphs (auto) Total Counted APTT 62.7 H 56.4 H Sodium Potassium Chloride Carbon Dioxide Anion Gap BUN Creatinine Estim Creat Clear Calc Est GFR (MDRD) Af Amer Est GFR (MDRD) Non-Af BUN/Creatinine Ratio Glucose Calcium TSH POC Glucose 103 07/07/18 07/07/18 07/08/18 15:51 21:39 05:30 WBC 5.0 RBC 3.46 L Hgb 10.4 L Hct 32.0 L MCV 92.5 MCH 30.1 MCHC 32.5 RDW 13.7 RDW Differential 44.7 H Plt Count 286 MPV 9.5 Immature Gran % (Auto) 0.400 Neut % (Auto) 63.2 Lymph % (Auto) 26.8 [place] % (Auto) 6.6 Eos % (Auto) 2.6 Baso % (Auto) 0.4 Absolute Neuts (auto) 3.1 Absolute Lymphs (auto) 1.33 Total Counted Not Reportable APTT Sodium Potassium Chloride Carbon Dioxide Anion Gap BUN Creatinine Estim Creat Clear Calc Est GFR (MDRD) Af Amer Est GFR (MDRD) Non-Af BUN/Creatinine Ratio Glucose Calcium TSH POC Glucose 143 H 184 H 07/08/18 07/08/18 07/08/18 05:30 05:30 05:30 WBC RBC Hgb Hct MCV MCH MCHC RDW RDW Differential Plt Count MPV Immature Gran % (Auto) Neut % (Auto) Lymph % (Auto) [place] % (Auto) Eos % (Auto) Baso % (Auto) Absolute Neuts (auto) Absolute Lymphs (auto) Total Counted APTT 57.5 H Sodium 139 Potassium 4.3 Chloride 107 Carbon Dioxide 26.0 Anion Gap 6 BUN 20 H Creatinine 1.23 Estim Creat Clear Calc 53.23 Est GFR (MDRD) Af Amer 73 Est GFR (MDRD) Non-Af 60 BUN/Creatinine Ratio 16.3 Glucose 169 H Calcium 8.8 TSH 1.43 POC Glucose 07/08/18 07/08/18 07/08/18 06:52 11:12 16:04 WBC RBC Hgb Hct MCV MCH MCHC RDW RDW Differential Plt Count MPV Immature Gran % (Auto) Neut % (Auto) Lymph % (Auto) [place] % (Auto) Eos % (Auto) Baso % (Auto) Absolute Neuts (auto) Absolute Lymphs (auto) Total Counted APTT Sodium Potassium Chloride Carbon Dioxide Anion Gap BUN Creatinine Estim Creat Clear Calc Est GFR (MDRD) Af Amer Est GFR (MDRD) Non-Af BUN/Creatinine Ratio Glucose Calcium TSH POC Glucose 173 H 189 H 173 H 07/08/18 07/09/18 07/09/18 22:06 05:15 06:54 WBC RBC Hgb Hct MCV MCH MCHC RDW RDW Differential Plt Count MPV Immature Gran % (Auto) Neut % (Auto) Lymph % (Auto) [place] % (Auto) Eos % (Auto) Baso % (Auto) Absolute Neuts (auto) Absolute Lymphs (auto) Total Counted APTT 38.4 H Sodium Potassium Chloride Carbon Dioxide Anion Gap BUN Creatinine Estim Creat Clear Calc Est GFR (MDRD) Af Amer Est GFR (MDRD) Non-Af BUN/Creatinine Ratio Glucose Calcium TSH POC Glucose 183 H 106 Clinical Impression(s) from Imaging Studies Chest X-Ray 07/06/18 10:11 IMPRESSION: Patchy infiltrates in the right upper and right lower lobes as well as in the left lower lobe. Follow-up is recommended. Electronically Signed: Ramana Frost MD at 11:05 EDT Tel [phone], Service support , Chest CTA 07/06/18 11:03 IMPRESSION: Pulmonary embolism involving the right interlobar pulmonary artery and the branches as well as tiny pulmonary emboli in the left lower lobe pulmonary arterial branches. Bibasilar infiltration and small bilateral pleural effusions. Electronically Signed: Ramana Frost MD at 12:23 EDT Tel [phone], Service support , Medical Necessity - Tobacco Use Smoking Status: Unknown if ever smoked Assessment/Plan All Active Problems Shortness of breath (Acute) Pulmonary embolism (Acute) NSTEMI (non-ST elevated myocardial infarction) (Acute) Pulmonary hypertension (Acute) RECOMMENDATIONS: 1. Continue Eliquis as prescribed. 2. Encourage incentive spirometer use and mobilize patient as tolerated. 3. The patient can follow-up in the pulmonary medicine clinic within 2 weeks of his discharge from the hospital. 4. Given the lack of further pulmonary needs, will sign off. Please call with any additional questions. IMPRESSIONS: 1. Acute hypoxic respiratory insufficiency secondary to submassive pulmonary embolism The patient presented to the hospital with shortness of breath, with subsequent workup revealing evidence of submassive pulmonary embolism. He was initially maintained on a heparin drip but has been subsequently transition to Eliquis. His supplemental oxygen has been weaned and is currently maintaining appropriate oxygen saturations on room air. The patient will need to perform a walking oximetry study prior to consideration for discharge from the hospital. There would be no indication to obtain lower extremity Dopplers, as an IVC filter would not be indicated unless the patient does not tolerate pharmacologic anticoagulation. The patient CT chest revealed small bilateral pleural effusions with associated compressive atelectasis. Low clinical suspicion for underlying pulmonary infectious process, as the patient has not had a cough, there is no evidence of leukocytosis and he has been afebrile. Antibiotics have been discontinued. Recommend that the patient follow-up in the pulmonary medicine clinic within 2 weeks of his discharge from the hospital. 2. Non-ST elevation myocardial infarction Continue medical management per cardiology recommendations. Troponin elevation is likely secondary to #1. 3. Diabetes mellitus/hypertension/BPH/dementia/advanced age Complicates care, management, recovery and prognosis. Continue basal insulin regimen as ordered. This note was generated with Ent[employer]ation software. It may contain incorrect words, spelling, and punctuation that were not noted in checking the note before signing. Code Visit Inpatient E&M: 59458 Subs Hosp L2
--- NOTE | 2018-07-09 08:42 | CASEMGMT ---
AUTUMN faxed updates to [facility]. AUTUMN let [facility] know on fax face sheet that he will likely return today. Plan: [facility] under intermediate level of care. Clare ROSAS [employer]
[2018-07-09] MEDS: Fenofibrate 145 MG Tablet PO (08:57)
[2018-07-09] MEDS: Lisinopril 5 MG Tablet PO (08:57)
[2018-07-09] MEDS: Tamsulosin HCl 0.4 MG Capsule PO (08:57)
[2018-07-09] MEDS: Aspirin 81 MG TAB.CHEW PO (08:57)
[2018-07-09] MEDS: Finasteride 5 MG Tablet PO (08:57)
[2018-07-09] MEDS: APIXABAN 5 MG TABLET PO ×2 (08:57→12:12)
[2018-07-09] MEDS: Metoprolol Tartrate 25 MG Tablet 12.5 MG PO (08:59)
--- NOTE | 2018-07-09 10:52 | CASEMGMT ---
Physician does plan on discharging patient back to the [facility] today. AUTUMN called Janet at [facility] and let her know. Await orders. Clare ROSAS MSW
--- NOTE | 2018-07-09 11:04 | PCM.TXEXTCAR ---
- Diet 07/07/18 13:36 Diet: Calorie Controlled Is pt able to select menu?: No Diet Comments: NO STRAWS, small bites/sips, slow intake, 90 degree HOB, distant supervised How many daily calories?: 1800 calorie - Routine Orders/Code Status Enema Type: Fleetz Enema Frequency: Daily PRN Suppository Type: Dulcolax 10mg Suppository Frequency: Daily PRN O2 Frequency: PRN Keep PO Greater than or Equal to (%): 92 Code Status: DNRCC-A - Wound(s) Right Aragon Wound Type: Abrasion - Therapies Weight Bearing: Weight bearing as tolerated Physical Therapy: Eval and Treat Occupational Therapy: Eval and Treat - Problem/Diagnosis (1) Shortness of breath Status: Acute Current Visit: Yes - Allergies/Procedures Done in Hospital Allergies/Adverse Reactions: Allergies metformin Adverse Reaction (Verified 07/06/18 10:23) Other Procedures: 2-D Echocardiogram, EKG - Type of Care/Length of Stay Estimated LOS: More Than 30 Days Type of Care Needed: Skilled Rehab Potential: Fair Prognosis: Fair - Additional Orders/Day of Discharge H&P will serve as current which was dated: 07/06/18 Day of Discharge: 07/09/18 - Dietary and Speech Recommendations Dietitian Recommendations/Changes: Rec diet change to CHO controlled. - Follow Up Care Primary Care Physician: Helder Contreras [Primary Care Provider] - Please follow up with your Primary Care Physician in: one week Please Follow Up With: Jose A Beltran MD When: 1-2 weeks Please Follow Up With: Duong Chopra DO When: 1-2 weeks
--- NOTE | 2018-07-09 11:07 | PCM.DC.SUM ---
Discharge Date and Diagnosis Date of Admission: 07/06/18 Date of Discharge: 07/09/18 - Primary Discharge Diagnosis Active and Suspected Problems Shortness of breath (Acute) Pulmonary embolism (Acute) NSTEMI (non-ST elevated myocardial infarction) (Acute) Pulmonary hypertension (Acute) Hospital Course and Treatment Imaging Results: Diagnostic Data Chest X-Ray 07/06/18 10:11 IMPRESSION: Patchy infiltrates in the right upper and right lower lobes as well as in the left lower lobe. Follow-up is recommended. Electronically Signed: Ramana Frost MD at 11:05 EDT Tel [phone], Service support , Chest CTA 07/06/18 11:03 IMPRESSION: Pulmonary embolism involving the right interlobar pulmonary artery and the branches as well as tiny pulmonary emboli in the left lower lobe pulmonary arterial branches. Bibasilar infiltration and small bilateral pleural effusions. Electronically Signed: Ramana Frost MD at 12:23 EDT Tel [phone], Service support , Laboratory Tests 07/06/18 07/06/18 07/06/18 10:03 10:03 10:03 WBC 7.1 RBC 3.93 L Hgb 11.5 L Hct 36.0 L MCV 91.6 MCH 29.3 MCHC 31.9 L RDW 13.9 RDW Differential 46.4 H Plt Count 309 MPV 9.5 Immature Gran % (Auto) 0.300 Neut % (Auto) 73.6 H Lymph % (Auto) 18.3 L [place] % (Auto) 6.5 Eos % (Auto) 1.0 Baso % (Auto) 0.3 Absolute Neuts (auto) 5.2 Absolute Lymphs (auto) 1.30 Total Counted Not Reportable APTT Specimen Type Sample Site pH Bicarbonate Actual POC Total CO2 Base Excess O2 Saturation O2 % ABG pCO2 ABG pO2 Luis Manuel Test Respiration Rate O2 Delivery Device EPAP IPAP Blood Gas Notified Whom Blood Gas Notified Time Sodium 134 L Potassium 4.6 Chloride 102 Carbon Dioxide 24.0 Anion Gap 8 BUN 29 H Creatinine 1.72 H Estim Creat Clear Calc 32.59 Est GFR (MDRD) Af Amer 49 L Est GFR (MDRD) Non-Af 41 L BUN/Creatinine Ratio 16.9 Glucose 194 H Lactic Acid 1.4 Calcium 8.8 Troponin I 1.770 H* B-Natriuretic Peptide Triglycerides Cholesterol LDL Cholesterol VLDL Cholesterol HDL Cholesterol TSH Urine Color Urine Clarity Urine pH Ur Specific Gerber Urine Protein Urine Glucose (UA) Urine Ketones Urine Occult Blood Urine Nitrite Urine Bilirubin Urine Urobilinogen Ur Leukocyte Esterase Urine RBC Urine WBC Ur Squamous Epith Cells Urine Bacteria Urine Mucus POC Glucose 07/06/18 07/06/18 07/06/18 10:03 10:05 14:15 WBC RBC Hgb Hct MCV MCH MCHC RDW RDW Differential Plt Count MPV Immature Gran % (Auto) Neut % (Auto) Lymph % (Auto) [place] % (Auto) Eos % (Auto) Baso % (Auto) Absolute Neuts (auto) Absolute Lymphs (auto) Total Counted APTT 34.2 Specimen Type Sample Site pH Bicarbonate Actual POC Total CO2 Base Excess O2 Saturation O2 % ABG pCO2 ABG pO2 Luis Manuel Test Respiration Rate O2 Delivery Device EPAP IPAP Blood Gas Notified Whom Blood Gas Notified Time Sodium Potassium Chloride Carbon Dioxide Anion Gap BUN Creatinine Estim Creat Clear Calc Est GFR (MDRD) Af Amer Est GFR (MDRD) Non-Af BUN/Creatinine Ratio Glucose Lactic Acid Calcium Troponin I 1.820 H* B-Natriuretic Peptide 437.7 H Triglycerides Cholesterol LDL Cholesterol VLDL Cholesterol HDL Cholesterol TSH Urine Color Urine Clarity Urine pH Ur Specific Gerber Urine Protein Urine Glucose (UA) Urine Ketones Urine Occult Blood Urine Nitrite Urine Bilirubin Urine Urobilinogen Ur Leukocyte Esterase Urine RBC Urine WBC Ur Squamous Epith Cells Urine Bacteria Urine Mucus POC Glucose 07/06/18 07/06/18 07/06/18 14:15 16:55 18:26 WBC RBC Hgb Hct MCV MCH MCHC RDW RDW Differential Plt Count MPV Immature Gran % (Auto) Neut % (Auto) Lymph % (Auto) [place] % (Auto) Eos % (Auto) Baso % (Auto) Absolute Neuts (auto) Absolute Lymphs (auto) Total Counted APTT 85.8 H Specimen Type Sample Site pH Bicarbonate Actual POC Total CO2 Base Excess O2 Saturation O2 % ABG pCO2 ABG pO2 Luis Manuel Test Respiration Rate O2 Delivery Device EPAP IPAP Blood Gas Notified Whom Blood Gas Notified Time Sodium Potassium Chloride Carbon Dioxide Anion Gap BUN Creatinine Estim Creat Clear Calc Est GFR (MDRD) Af Amer Est GFR (MDRD) Non-Af BUN/Creatinine Ratio Glucose Lactic Acid Calcium Troponin I B-Natriuretic Peptide Triglycerides 127 Cholesterol 106 LDL Cholesterol 46 VLDL Cholesterol 25 HDL Cholesterol 35 L TSH Urine Color Yellow Urine Clarity Sl. Cloudy Urine pH 5.0 Ur Specific Gerber 1.015 Urine Protein Negative Urine Glucose (UA) Normal Urine Ketones Negative Urine Occult Blood Negative Urine Nitrite Negative Urine Bilirubin Negative Urine Urobilinogen Normal Ur Leukocyte Esterase 100 H Urine RBC 0 SEEN Urine WBC 5-10 SEEN Ur Squamous Epith Cells 0-5 SEEN Urine Bacteria 0 SEEN Urine Mucus 0 SEEN POC Glucose 07/06/18 07/06/18 07/06/18 19:10 21:04 22:14 WBC RBC Hgb Hct MCV MCH MCHC RDW RDW Differential Plt Count MPV Immature Gran % (Auto) Neut % (Auto) Lymph % (Auto) [place] % (Auto) Eos % (Auto) Baso % (Auto) Absolute Neuts (auto) Absolute Lymphs (auto) Total Counted APTT Specimen Type ART Sample Site L Radial pH 7.38 Bicarbonate Actual 22.7 POC Total CO2 24 Base Excess -2 O2 Saturation 98 O2 % 35 ABG pCO2 38.3 ABG pO2 107 H Luis Manuel Test POS Respiration Rate 12 O2 Delivery Device Bi / C PAP EPAP 6 IPAP 12 Blood Gas Notified Whom HOSP Blood Gas Notified Time 2100 Sodium Potassium Chloride Carbon Dioxide Anion Gap BUN Creatinine Estim Creat Clear Calc Est GFR (MDRD) Af Amer Est GFR (MDRD) Non-Af BUN/Creatinine Ratio Glucose Lactic Acid Calcium Troponin I 1.620 H* B-Natriuretic Peptide Triglycerides Cholesterol LDL Cholesterol VLDL Cholesterol HDL Cholesterol TSH Urine Color Urine Clarity Urine pH Ur Specific Gerber Urine Protein Urine Glucose (UA) Urine Ketones Urine Occult Blood Urine Nitrite Urine Bilirubin Urine Urobilinogen Ur Leukocyte Esterase Urine RBC Urine WBC Ur Squamous Epith Cells Urine Bacteria Urine Mucus POC Glucose 104 07/07/18 07/07/18 07/07/18 02:05 02:05 02:05 WBC 6.5 RBC 3.51 L Hgb 10.3 L Hct 32.4 L MCV 92.3 MCH 29.3 MCHC 31.8 L RDW 14.0 RDW Differential 47.3 H Plt Count 263 MPV 9.2 Immature Gran % (Auto) 0.300 Neut % (Auto) 63.3 Lymph % (Auto) 28.7 [place] % (Auto) 4.6 Eos % (Auto) 2.9 Baso % (Auto) 0.2 Absolute Neuts (auto) 4.1 Absolute Lymphs (auto) 1.86 Total Counted Not Reportable APTT 76.1 H Specimen Type Sample Site pH Bicarbonate Actual POC Total CO2 Base Excess O2 Saturation O2 % ABG pCO2 ABG pO2 Luis Manuel Test Respiration Rate O2 Delivery Device EPAP IPAP Blood Gas Notified Whom Blood Gas Notified Time Sodium 139 Potassium 4.4 Chloride 106 Carbon Dioxide 25.0 Anion Gap 8 BUN 25 H Creatinine 1.48 H Estim Creat Clear Calc 44.24 Est GFR (MDRD) Af Amer 59 L Est GFR (MDRD) Non-Af 48 L BUN/Creatinine Ratio 16.9 Glucose 92 Lactic Acid Calcium 8.5 Troponin I B-Natriuretic Peptide Triglycerides Cholesterol LDL Cholesterol VLDL Cholesterol HDL Cholesterol TSH Urine Color Urine Clarity Urine pH Ur Specific Gerber Urine Protein Urine Glucose (UA) Urine Ketones Urine Occult Blood Urine Nitrite Urine Bilirubin Urine Urobilinogen Ur Leukocyte Esterase Urine RBC Urine WBC Ur Squamous Epith Cells Urine Bacteria Urine Mucus POC Glucose 07/07/18 07/07/18 07/07/18 06:44 07:45 10:39 WBC RBC Hgb Hct MCV MCH MCHC RDW RDW Differential Plt Count MPV Immature Gran % (Auto) Neut % (Auto) Lymph % (Auto) [place] % (Auto) Eos % (Auto) Baso % (Auto) Absolute Neuts (auto) Absolute Lymphs (auto) Total Counted APTT 62.7 H Specimen Type Sample Site pH Bicarbonate Actual POC Total CO2 Base Excess O2 Saturation O2 % ABG pCO2 ABG pO2 Luis Manuel Test Respiration Rate O2 Delivery Device EPAP IPAP Blood Gas Notified Whom Blood Gas Notified Time Sodium Potassium Chloride Carbon Dioxide Anion Gap BUN Creatinine Estim Creat Clear Calc Est GFR (MDRD) Af Amer Est GFR (MDRD) Non-Af BUN/Creatinine Ratio Glucose Lactic Acid Calcium Troponin I B-Natriuretic Peptide Triglycerides Cholesterol LDL Cholesterol VLDL Cholesterol HDL Cholesterol TSH Urine Color Urine Clarity Urine pH Ur Specific Gerber Urine Protein Urine Glucose (UA) Urine Ketones Urine Occult Blood Urine Nitrite Urine Bilirubin Urine Urobilinogen Ur Leukocyte Esterase Urine RBC Urine WBC Ur Squamous Epith Cells Urine Bacteria Urine Mucus POC Glucose 78 103 07/07/18 07/07/18 07/07/18 14:10 15:51 21:39 WBC RBC Hgb Hct MCV MCH MCHC RDW RDW Differential Plt Count MPV Immature Gran % (Auto) Neut % (Auto) Lymph % (Auto) [place] % (Auto) Eos % (Auto) Baso % (Auto) Absolute Neuts (auto) Absolute Lymphs (auto) Total Counted APTT 56.4 H Specimen Type Sample Site pH Bicarbonate Actual POC Total CO2 Base Excess O2 Saturation O2 % ABG pCO2 ABG pO2 Luis Manuel Test Respiration Rate O2 Delivery Device EPAP IPAP Blood Gas Notified Whom Blood Gas Notified Time Sodium Potassium Chloride Carbon Dioxide Anion Gap BUN Creatinine Estim Creat Clear Calc Est GFR (MDRD) Af Amer Est GFR (MDRD) Non-Af BUN/Creatinine Ratio Glucose Lactic Acid Calcium Troponin I B-Natriuretic Peptide Triglycerides Cholesterol LDL Cholesterol VLDL Cholesterol HDL Cholesterol TSH Urine Color Urine Clarity Urine pH Ur Specific Gerber Urine Protein Urine Glucose (UA) Urine Ketones Urine Occult Blood Urine Nitrite Urine Bilirubin Urine Urobilinogen Ur Leukocyte Esterase Urine RBC Urine WBC Ur Squamous Epith Cells Urine Bacteria Urine Mucus POC Glucose 143 H 184 H 07/08/18 07/08/18 07/08/18 05:30 05:30 05:30 WBC 5.0 RBC 3.46 L Hgb 10.4 L Hct 32.0 L MCV 92.5 MCH 30.1 MCHC 32.5 RDW 13.7 RDW Differential 44.7 H Plt Count 286 MPV 9.5 Immature Gran % (Auto) 0.400 Neut % (Auto) 63.2 Lymph % (Auto) 26.8 [place] % (Auto) 6.6 Eos % (Auto) 2.6 Baso % (Auto) 0.4 Absolute Neuts (auto) 3.1 Absolute Lymphs (auto) 1.33 Total Counted Not Reportable APTT 57.5 H Specimen Type Sample Site pH Bicarbonate Actual POC Total CO2 Base Excess O2 Saturation O2 % ABG pCO2 ABG pO2 Luis Manuel Test Respiration Rate O2 Delivery Device EPAP IPAP Blood Gas Notified Whom Blood Gas Notified Time Sodium 139 Potassium 4.3 Chloride 107 Carbon Dioxide 26.0 Anion Gap 6 BUN 20 H Creatinine 1.23 Estim Creat Clear Calc 53.23 Est GFR (MDRD) Af Amer 73 Est GFR (MDRD) Non-Af 60 BUN/Creatinine Ratio 16.3 Glucose 169 H Lactic Acid Calcium 8.8 Troponin I B-Natriuretic Peptide Triglycerides Cholesterol LDL Cholesterol VLDL Cholesterol HDL Cholesterol TSH Urine Color Urine Clarity Urine pH Ur Specific Gerber Urine Protein Urine Glucose (UA) Urine Ketones Urine Occult Blood Urine Nitrite Urine Bilirubin Urine Urobilinogen Ur Leukocyte Esterase Urine RBC Urine WBC Ur Squamous Epith Cells Urine Bacteria Urine Mucus POC Glucose 07/08/18 07/08/18 07/08/18 05:30 06:52 11:12 WBC RBC Hgb Hct MCV MCH MCHC RDW RDW Differential Plt Count MPV Immature Gran % (Auto) Neut % (Auto) Lymph % (Auto) [place] % (Auto) Eos % (Auto) Baso % (Auto) Absolute Neuts (auto) Absolute Lymphs (auto) Total Counted APTT Specimen Type Sample Site pH Bicarbonate Actual POC Total CO2 Base Excess O2 Saturation O2 % ABG pCO2 ABG pO2 Luis Manuel Test Respiration Rate O2 Delivery Device EPAP IPAP Blood Gas Notified Whom Blood Gas Notified Time Sodium Potassium Chloride Carbon Dioxide Anion Gap BUN Creatinine Estim Creat Clear Calc Est GFR (MDRD) Af Amer Est GFR (MDRD) Non-Af BUN/Creatinine Ratio Glucose Lactic Acid Calcium Troponin I B-Natriuretic Peptide Triglycerides Cholesterol LDL Cholesterol VLDL Cholesterol HDL Cholesterol TSH 1.43 Urine Color Urine Clarity Urine pH Ur Specific Gerber Urine Protein Urine Glucose (UA) Urine Ketones Urine Occult Blood Urine Nitrite Urine Bilirubin Urine Urobilinogen Ur Leukocyte Esterase Urine RBC Urine WBC Ur Squamous Epith Cells Urine Bacteria Urine Mucus POC Glucose 173 H 189 H 07/08/18 07/08/18 07/09/18 16:04 22:06 05:15 WBC RBC Hgb Hct MCV MCH MCHC RDW RDW Differential Plt Count MPV Immature Gran % (Auto) Neut % (Auto) Lymph % (Auto) [place] % (Auto) Eos % (Auto) Baso % (Auto) Absolute Neuts (auto) Absolute Lymphs (auto) Total Counted APTT 38.4 H Specimen Type Sample Site pH Bicarbonate Actual POC Total CO2 Base Excess O2 Saturation O2 % ABG pCO2 ABG pO2 Luis Manuel Test Respiration Rate O2 Delivery Device EPAP IPAP Blood Gas Notified Whom Blood Gas Notified Time Sodium Potassium Chloride Carbon Dioxide Anion Gap BUN Creatinine Estim Creat Clear Calc Est GFR (MDRD) Af Amer Est GFR (MDRD) Non-Af BUN/Creatinine Ratio Glucose Lactic Acid Calcium Troponin I B-Natriuretic Peptide Triglycerides Cholesterol LDL Cholesterol VLDL Cholesterol HDL Cholesterol TSH Urine Color Urine Clarity Urine pH Ur Specific Gerber Urine Protein Urine Glucose (UA) Urine Ketones Urine Occult Blood Urine Nitrite Urine Bilirubin Urine Urobilinogen Ur Leukocyte Esterase Urine RBC Urine WBC Ur Squamous Epith Cells Urine Bacteria Urine Mucus POC Glucose 173 H 183 H 07/09/18 06:54 WBC RBC Hgb Hct MCV MCH MCHC RDW RDW Differential Plt Count MPV Immature Gran % (Auto) Neut % (Auto) Lymph % (Auto) [place] % (Auto) Eos % (Auto) Baso % (Auto) Absolute Neuts (auto) Absolute Lymphs (auto) Total Counted APTT Specimen Type Sample Site pH Bicarbonate Actual POC Total CO2 Base Excess O2 Saturation O2 % ABG pCO2 ABG pO2 Luis Manuel Test Respiration Rate O2 Delivery Device EPAP IPAP Blood Gas Notified Whom Blood Gas Notified Time Sodium Potassium Chloride Carbon Dioxide Anion Gap BUN Creatinine Estim Creat Clear Calc Est GFR (MDRD) Af Amer Est GFR (MDRD) Non-Af BUN/Creatinine Ratio Glucose Lactic Acid Calcium Troponin I B-Natriuretic Peptide Triglycerides Cholesterol LDL Cholesterol VLDL Cholesterol HDL Cholesterol TSH Urine Color Urine Clarity Urine pH Ur Specific Gerber Urine Protein Urine Glucose (UA) Urine Ketones Urine Occult Blood Urine Nitrite Urine Bilirubin Urine Urobilinogen Ur Leukocyte Esterase Urine RBC Urine WBC Ur Squamous Epith Cells Urine Bacteria Urine Mucus POC Glucose 106 Interpretation Summary 2D echo (07/06/18) Moderately dilated left ventricle. The estimated ejection fraction is 60 %. Stage 2 diastolic dysfunction. There is mild global hypokinesis of the left ventricle. Mild-Moderate (1-2+) mitral valve insufficiency. Mild (1+) tricuspid valve insufficiency. Right ventricular systolic pressure estimated to be 66 mmHg. Severe pulmonary hypertension. 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 cardiology pulmonology Operations: None Procedures: 2-D Echocardiogram, EKG Summary of Care Provided: The patient is a 82 year old M who was admitted from his [facility] by the ED on 07/06/2018 with a complaint of acute onset shortness of breath. History was taken from his and has patient was not a very good historian. was called on day of admission because patient had had a sudden episode of shortness of breath. He had been treated for pneumonia in the [facility] over the last few days prior to admission. Pulse rate was 101 and admission to the respiratory rate was 28 and was saturating at 96% on 3 L of oxygen. Creatinine was 1.72 on admission troponin was 1.77. BNP was 47. EKG shows sinus tachycardia with rate of 1 1 0 bpm and a right bundle branch block and chest x-ray showed patchy infiltrates in the right upper and lower lobe and left lower lobe. CT PE done was positive for bilateral pulmonary emboli. He was admitted and managed for acute hypoxic respiratory failure due to submassive pulmonary embolism, NST ELIN and health associated pneumonia. He was started on heparin drip, aspirin and on IV vancomycin, Zosyn and Levaquin. Cardiology and pulmonology were consulted. He had a 2D echo done which showed moderately dilated left ventricle with EF of 60% and stage II diastolic dysfunction. RVSP was 66 mmHg and he had subtle inferior posterior hypokinesis. Troponin trended up slightly to 1.87 and then down was to 1.62. Duplex of lower extremities was negative for any DVT. He was switched from heparin drip to p.o. Eliquis for anticoagulation. Patient developed A. fib on 2017 and was started on metoprolol 12.5 mg twice daily. He converted to sinus rhythm and heart rate stabilized. Per cardiology, he may need a stress test in the future once this acute episode is over. Patient remained stable, shortness of breath resolved and was titrated off oxygen. On day of discharge was saturating above 92% on room air. Patient was discharged on 831 back to his [facility]. He is to be on p.o. Eliquis 10 mg twice daily for 5 more days with a stop date of 07/14/2018. After that he is to continue taking Eliquis 5 mg twice daily. Patient advised to continue oral anticoagulation indefinitely on account of advanced age and immobility. He is to be worked up for age-appropriate screening on outpatient basis. Of note, said patient had never had a colonoscopy in the past . 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 He had had no episode of weight loss or any pointers towards malignancy. Because of PE is not clear and is likely provoked by his prolonged periods of recumbency even though duplex of the lower extremities was negative. He is to follow-up with cardiology and pulmonology. Patient was also discharged with a prescription for p.o. levofloxacin 500 mg daily for 7 days. Blood cultures were negative after 48 hours. Blood sugars to be followed up closely in the [facility] as patient is fasting sugars were usually in the low 100s which is normal. He was discharged on his home dose of Lantus 8 units in the morning and Lantus 42 units in the evening. Insulin dose to be titrated as needed in the [facility]. [] Discharge Diet: 2000 mg Sodium Diet Discharge Activity: Return to Normal Activity Weight Bearing Status: Weight bearing as tolerated Call your doctor if you observe: Fever of 101 or Higher, Shortness of breath, Chest pain Home Medications: Medications to take at Discharge Acetaminophen 650 mg PO Q4H PRN PRN 07/06/18 Aspirin [Aspirin, Baby] 81 mg PO DAILY@0800 07/06/18 Ciprofloxacin HCl 1 drop OP BID 07/06/18 Cod Liver Oil 1 each PO DAILY 07/06/18 Cranberry 800 mg PO BID 07/06/18 Cyclosporine [Restasis] 1 drop OP Q12H PRN 07/06/18 Fenofibrate,Micronized [Fenofibrate] 200 mg PO DAILY 07/06/18 Finasteride [Proscar] 5 mg PO DAILY 07/06/18 Glimepiride [Amaryl] 1 tab PO BID 07/06/18 Insulin Detemir [Levemir] 42 unit SQ QHS 07/06/18 Insulin Detemir [Levemir] 80 units SQ DAILY 07/06/18 Ipratropium/Albuterol Sulfate [Duoneb] 3 ml INHALATION Q4H PRN PRN 07/06/18 Lisinopril [Zestril] 5 mg PO DAILY 07/06/18 Magnesium Hydroxide [Milk Of Magnesia] 30 ml PO DAILY PRN PRN 07/06/18 Na Phos,M-B/Na Phos,Di-Ba [Fleet Enema] 1 bottle RECTAL DAILY PRN 07/06/18 Polyvinyl Alcohol [Artificial Tears] 15 ml OP BID PRN 07/06/18 Sennosides [Senna] 8.6 mg PO DAILY PRN 07/06/18 Sertraline HCl [Zoloft] 25 mg PO QHS 07/06/18 Tamsulosin HCl [Flomax] 0.4 mg PO DAILY 07/06/18 Apixaban [Eliquis] 5 mg PO BID #60 tab.ds.pk 07/09/18 Apixaban [Eliquis] 10 mg PO BID #20 tab 07/09/18 Aspirin [Aspirin, Baby] 81 mg PO DAILY@0800 #30 tab.chew 07/09/18 Metoprolol Tartrate [Lopressor (beta nikhil)] 12.5 mg PO BID #30 tab 07/09/18 levoFLOXacin tablet [Levaquin tablet] 500 mg PO DAILY #7 tab 07/09/18 Following Prescrptions Were Given to Patient: Aspirin [Aspirin, Baby] 81 mg PO DAILY@0800 #30 tab.chew levoFLOXacin tablet [Levaquin tablet] 500 mg PO DAILY #7 tab Apixaban [Eliquis] 10 mg PO BID #20 tab Apixaban [Eliquis] 5 mg PO BID #60 tab.ds.pk Metoprolol Tartrate [Lopressor (beta nikhil)] 12.5 mg PO BID #30 tab Primary Care Physician: Helder Contreras [Primary Care Provider] - Please follow up with your Primary Care Physician in: one week Please Follow Up With: Jose A Beltran MD When: 1-2 weeks Please Follow Up With: Duong Chopra DO When: 1-2 weeks Disposition: Retirement facility Minutes spent on discharge:: 40 Patient Condition:: Stable Medical Necessity - Tobacco Use Smoking Status: Unknown if ever smoked Meaningful Use Info Meaningful Use Diagnoses (Choose all that apply): AMI, VTE - AMI Aspirin given w/in 24hrs of arrival?: Yes ASA at discharge?: Yes Statins at discharge?: Yes Ovidio/ARB at discharge?: Yes Beta Nikhil at discharge?: Yes Done w/ Acute DC measure.: Yes - VTE Anticoag overlap given w/in hospital stay or rx'd at dc?: Yes Pt receive overlap for 5 days?: No Reason overlap not ordered, prescribed, or given for 5 days: Treatment Not Indicated - started on DOACs, which doesnt require overlap Code Visit Inpatient E&M: [id number] Disch Hosp
--- NOTE | 2018-07-09 11:24 | CASEMGMT ---
Faxed orders to [facility]. Called [facility] and arranged for patient to get picked up at via cot. SW notified RN, patient, his , chief media officer, principal secretary, and Janet at [facility]. Plan: d/c back to [facility] under intermediate level of care. [facility] transported him via cot. Clare ROSAS MSW
[2018-07-09 11:55] LABS: Bedside Glucose 148 mg/dL (70-110)
== END 2018-07-09 13:23 | disposition intermediate care facility (04) | DRG 175 ==
LOC: ED 10:38 → PCU 12:42
PROVIDERS: Internal Medicine Cardiovascular Disease; Admitting Provider Student in an Organized Health Care Education/Training Program; Emergency Provider Emergency Medicine; Family Provider Family Medicine; PCP Family Medicine; Visit Provider Student in an Organized Health Care Education/Training Program
DX: I26.09 Other pulmonary embolism with acute cor pulmonale (principal); I21.4 Non-ST elevation (NSTEMI) myocardial infarction; J18.9 Pneumonia, unspecified organism; N17.9 Acute kidney failure, unspecified; E11.9 Type 2 diabetes mellitus without complications; Z79.4 Long term (current) use of insulin; N40.0 Benign prostatic hyperplasia without lower urinary tract symptoms; Z66 Do not resuscitate; I27.20 Pulmonary hypertension, unspecified; I45.10 Unspecified right bundle-branch block; I48.91 Unspecified atrial fibrillation; Z87.440 Personal history of urinary (tract) infections; I10 Essential (primary) hypertension; F03.90 Unspecified dementia, unspecified severity, without behavioral disturbance, psychotic disturbance, mood disturbance, and anxiety; Z87.891 Personal history of nicotine dependence
CPT/HCPCS: 36415; 36600; 71045; 71275; 80048; 80061; 81001; 82803; 82962; 83605; 83880; 84443; 84484; 85025; 85730; 87040; 92507; 92526; 93005; 93306; 93970; 94002; 94003; 94640; 97110; 97162; 97166; 97530; 97802; 99285; J7030; J7040; J7050; Q9967; A4216

== ENCOUNTER → 2018-07-14 12:45 | Outpatient (REF) | payer MEDICARE, SELFPAY ==
[2018-07-14 13:50] LABS: Absolute Lymphocyte Count 1.25 X10^3/ul (0.83-4.51); Basophil# 0.02 X10^3/uL; Basophil% 0.4 % (0-1); Eosinophil# 0.15 X10^3/uL; Eosinophils% 3.2 % (0-5); Hematocrit 33.9 % (40-54); Hemoglobin 10.8 g/dl (13.0-16.5); Lymphocyte # 1.25 X10^3/ul (4.0); Lymphocyte % 26.4 % (19-41); Mean Corp Hgb Conc 31.9 g/gl (32-36); Mean Corpuscular Hgb 29.2 pg (27.0-32.0); Mean Corpuscular Volume 91.6 fL (80-94); Mean Platelet Vol. 9.3 fl (6.2-12.0); Monocyte# 0.34 X10^3/uL; Monocyte% 7.2 % (0-10); Neutrophil # 2.97 X10^3/uL (2.7-7.7); Neutrophil % 62.6 % (47-70); POSITIVE COUNT NO; POSITIVE DIFFERENTIAL NO; POSITIVE MORPHOLOGY NO; Platelet Count 268 K/mm3 (150-450); RBC Distribution Width CV 14.2 % (11.6-14.6); RBC Distribution Width SD 47.3 fl (35.1-43.9); White Blood Count 4.7 K/mm3 (4.4-11.0)
[2018-07-14 13:58] LABS: Anion Gap 8 (5-15); BUN 23 mg/dL (7-18); BUN/Creat Ratio 18.4 RATIO (10-20); Calcium,Total 8.8 mg/dL (8.5-10.1); Chloride 106 mmol/L (98-107); Creatinine, Serum 1.25 mg/dL (0.70-1.30); EST Glomerular Filtration Rate 59 mL/min (>60); Est Glom Filt Rate - Afr Amer 71 mL/min (>60); Glucose 164 mg/dL (74-106); Potassium 4.3 mmol/L (3.5-5.1); Sodium Level 140 mmol/L (136-145)
== END ==
LOC: OLS.ACH 12:45
PROVIDERS: Visit Provider Family Medicine
DX: E11.40 Type 2 diabetes mellitus with diabetic neuropathy, unspecified (principal); J18.9 Pneumonia, unspecified organism
CPT/HCPCS: 36415; 80048; 85025

== ENCOUNTER → 2018-08-30 04:00 | Outpatient (REF) | payer MEDICARE, SELFPAY ==
[2018-08-30 08:16] LABS: ALB/GLOB Ratio 0.6 RATIO (0.9-2.4); AST(SGOT) 21 U/L (15-37); Alanine Aminotransfer ALT/SGPT 34 U/L (16-61); Albumin, Serum 2.7 g/dL (3.2-5.0); Alkaline Phosphatase 80 U/L (45-117); Anion Gap 10 (5-15); BUN 29 mg/dL (7-18); Calcium,Total 9.4 mg/dL (8.5-10.1); Chloride 108 mmol/L (98-107); Creatinine, Serum 0.68 mg/dL (0.70-1.30); EST Glomerular Filtration Rate 120 mL/min (>60); Est Glom Filt Rate - Afr Amer 145 mL/min (>60); Globulin 4.4 g/dL (2.2-4.2); Glucose 257 mg/dL (74-106); Potassium 3.5 mmol/L (3.5-5.1); Protein, Total 7.1 g/dL (6.4-8.2); Sodium Level 149 mmol/L (136-145)
[2018-08-30 08:23] LABS: Hemoglobin A1c 7.3 % (4.2-6.3)
== END ==
LOC: OLS.ACH 04:00
PROVIDERS: Visit Provider Family Medicine
DX: E11.40 Type 2 diabetes mellitus with diabetic neuropathy, unspecified (principal)
CPT/HCPCS: 36415; 80053; 83036